=== PATIENT | male | born 1980 | race African-American/Black ===

== ENCOUNTER 2017-06-29 18:45 | Emergency (ER) | payer MEDICAID, OTHER ==
[~2017-06-29] VITALS: Ht 177.8 cm; Wt 80.9 kg
[~2017-06-29 18:45] MED LIST: DIPH25CA83 PO; SERT20OR PO
[2017-06-29] MEDS ORDERED: ATOR20TA65 MT (20:49)
[2017-06-29] MEDS ORDERED: OLAN10TA19 MT (20:49)
[2017-06-29] MEDS ORDERED: LORAZEPAM 1MG TABLET PO ONE (21:00)
[2017-06-29] MEDS ORDERED: OLANZAPINE 10MG TABLET ODT PO ONE (21:00)
[2017-06-29] MEDS ORDERED: DIPHENHYDRAMINE 50MG CAPSULE PO ONE (21:30)
[2017-06-29 21:34] LABS: BASOPHILS % 0.5 % (0.0-2.0); EOSINOPHILS % 0.5 % (0.0-5.0); HEMATOCRIT. 42.7 % (42.0-52.0); HEMOGLOBIN. 14.7 g/dL (14.0-18.0); LYMPHOCYTES % 47.8 % (20.0-50.0); MEAN CORPUSCULAR HEMOGLOBIN 30.1 pg (28.0-32.0); MEAN CORPUSCULAR VOLUME 87.6 fL (80.0-94.0); MEAN PLATELET VOLUME 7.7 fl (7.4-10.4); NEUTROPHILS % 43.2 % (40.0-76.0); PLATELET 254 x1000/uL (130-400); RED BLOOD CELL COUNT 4.88 mill/uL (4.7-6.1); RED CELL DISTRIBUTION WIDTH 13.6 % (11.6-14.6)
[2017-06-29 21:40] LABS: CHLORIDE 101 mEq/L (98-107)
[2017-06-29 21:43] LABS: ETHANOL BLOOD < 10 mg/dL
[2017-06-29 21:57] LABS: *AMPHETAMINES SCREEN URINE NEGATIVE (NEGATIVE); *BARBITURATES SCREEN URINE NEGATIVE (NEGATIVE); *BENZODIAZEPINES SCREEN URINE NEGATIVE (NEGATIVE); *COCAINE SCREEN URINE NEGATIVE (NEGATIVE); METHADONE URINE SCREEN NEGATIVE (NEGATIVE); OPIATES URINE SCREEN NEGATIVE (NEGATIVE)
[2017-06-29 21:58] LABS: CANNABINOID URINE SCREEN PRESUMTIVE POSITIVE (NEGATIVE); PHENCYCLIDINE URINE SCREEN NEGATIVE (NEGATIVE)
[2017-06-30] MEDS ORDERED: DIPHENHYDRAMINE 25MG CAPSULE PO ONE (13:30)
[2017-06-30 16:43] VITALS: BP 131/72
== END 2017-06-30 16:56 ==
LOC: ER 18:45
DX: F20.9 Schizophrenia, unspecified (principal); R45.851 Suicidal ideations; E78.00 Pure hypercholesterolemia, unspecified; F17.200 Nicotine dependence, unspecified, uncomplicated
CPT/HCPCS: 36415; 80048; 80305; 80307; 80329; 85025; 99285; G0482; Q0163

== ENCOUNTER 2017-08-16 16:36 | Emergency (ER) | payer MEDICAID ==
[~2017-08-16] VITALS: Ht 172.7 cm; Wt 80.0 kg
[~2017-08-16 16:36] MED LIST changes: +ATOR20TA65 MT; +OLAN10TA19 MT
[2017-08-16 18:39] LABS: BASOPHILS % 0.5 % (0.0-2.0); EOSINOPHILS % 1.4 % (0.0-5.0); HEMATOCRIT. 38.3 % (42.0-52.0); HEMOGLOBIN. 12.8 g/dL (14.0-18.0); LYMPHOCYTES % 43.9 % (20.0-50.0); MEAN CORPUSCULAR HEMOGLOBIN 29.5 pg (28.0-32.0); MEAN CORPUSCULAR VOLUME 88.3 fL (80.0-94.0); MEAN PLATELET VOLUME 7.7 fl (7.4-10.4); MONOCYTES % 7.8 % (2.0-8.0); NEUTROPHILS % 46.4 % (40.0-76.0); PLATELET 227 x1000/uL (130-400); RED BLOOD CELL COUNT 4.34 mill/uL (4.7-6.1); RED CELL DISTRIBUTION WIDTH 13.6 % (11.6-14.6)
[2017-08-16 18:45] LABS: CHLORIDE 103 mEq/L (98-107)
[2017-08-16 18:48] LABS: ETHANOL BLOOD < 10 mg/dL
[2017-08-16 19:05] LABS: *BARBITURATES SCREEN URINE NEGATIVE (NEGATIVE); *BENZODIAZEPINES SCREEN URINE NEGATIVE (NEGATIVE); *COCAINE SCREEN URINE NEGATIVE (NEGATIVE); CANNABINOID URINE SCREEN PRESUMTIVE POSITIVE (NEGATIVE); METHADONE URINE SCREEN NEGATIVE (NEGATIVE); OPIATES URINE SCREEN NEGATIVE (NEGATIVE)
[2017-08-16 19:06] LABS: *AMPHETAMINES SCREEN URINE NEGATIVE (NEGATIVE)
[2017-08-16 19:08] LABS: PHENCYCLIDINE URINE SCREEN NEGATIVE (NEGATIVE)
[2017-08-16] MEDS ORDERED: PETROLATUM,WHITE OPHTH OINT 3.5GM BOTHEYE STA (19:43)
[2017-08-16] MEDS ORDERED: DIPHENHYDRAMINE 50MG CAPSULE PO ONE (19:45)
[2017-08-16] MEDS ORDERED: OLANZAPINE 10MG TABLET PO SCH (21:00)
[2017-08-17] MEDS ORDERED: SERTRALINE HCL 25MG TABLET PO SCH (09:00)
[2017-08-17] MEDS ORDERED: DIPHENHYDRAMINE 50MG CAPSULE PO ONE ×2 (12:00→17:15)
[2017-08-17] MEDS ORDERED: POLYVINYL ALCOHOL OPHTH DROPS 15ML BOTHEYE STA (17:11)
[2017-08-18 10:37] VITALS: BP 114/69
== END 2017-08-18 12:15 ==
LOC: ER 16:36
DX: R45.851 Suicidal ideations (principal); F32.9 Major depressive disorder, single episode, unspecified; F17.200 Nicotine dependence, unspecified, uncomplicated
CPT/HCPCS: 36415; 80048; 80305; 80307; 80329; 85025; 99285; G0482; Q0163

== ENCOUNTER 2017-08-29 02:30 | Emergency (ER) | payer MEDICAID ==
[~2017-08-29] VITALS: Ht 175.3 cm; Wt 80.0 kg
[2017-08-29 08:07] VITALS: BP 132/78
== END 2017-08-29 08:14 | disposition home or self-care (01) ==
LOC: ER 04:29
DX: F91.8 Other conduct disorders (principal); F65.2 Exhibitionism; F23 Brief psychotic disorder; F32.9 Major depressive disorder, single episode, unspecified; F17.200 Nicotine dependence, unspecified, uncomplicated
CPT/HCPCS: 99284

== ENCOUNTER 2017-08-29 10:29 | Emergency (ER) | payer MEDICAID | END 2017-08-29 13:18 | disposition left against medical advice (07) | LOC: ER 13:16 | DX: Z53.21 Procedure and treatment not carried out due to patient leaving prior to being seen by health care provider (principal) ==

== ENCOUNTER 2017-09-08 23:00 | Emergency (ER) | payer MEDICAID ==
[~2017-09-08] VITALS: Ht 175.3 cm; Wt 86.0 kg
[2017-09-09] MEDS ORDERED: ASPIRIN 325MG TABLET PO ONE (02:45)
[2017-09-09 02:58] LABS: BASOPHILS % 0.5 % (0.0-2.0); HEMATOCRIT. 43.8 % (42.0-52.0); HEMOGLOBIN. 14.7 g/dL (14.0-18.0); MEAN CORPUSCULAR HEMOGLOBIN 29.2 pg (28.0-32.0); MEAN CORPUSCULAR VOLUME 86.8 fL (80.0-94.0); MEAN PLATELET VOLUME 7.6 fl (7.4-10.4); MONOCYTES % 9.8 % (2.0-8.0); NEUTROPHILS % 72.7 % (40.0-76.0); PLATELET 259 x1000/uL (130-400); RED BLOOD CELL COUNT 5.05 mill/uL (4.7-6.1); RED CELL DISTRIBUTION WIDTH 13.5 % (11.6-14.6)
[2017-09-09 03:04] LABS: CHLORIDE 101 mEq/L (98-107)
[2017-09-09 03:08] LABS: ETHANOL BLOOD < 10 mg/dL
[2017-09-09 10:01] VITALS: BP 149/89
== END 2017-09-09 10:06 | disposition home or self-care (01) ==
LOC: ER 23:00
DX: R45.851 Suicidal ideations (principal); F20.9 Schizophrenia, unspecified; R07.89 Other chest pain
CPT/HCPCS: 36415; 71045; 80053; 80307; 80329; 84443; 84484; 85025; 93005; 99285; G0482; Z7610

== ENCOUNTER 2017-10-29 17:26 | Emergency (ER) | payer MEDICAID ==
[~2017-10-29] VITALS: Ht 175.3 cm; Wt 75.0 kg
[2017-10-29 19:20] LABS: BASOPHILS % 0.7 % (0.0-2.0); EOSINOPHILS % 0.8 % (0.0-5.0); HEMATOCRIT. 46.2 % (42.0-52.0); HEMOGLOBIN. 15.2 g/dL (14.0-18.0); LYMPHOCYTES % 45.8 % (20.0-50.0); MEAN CORPUSCULAR VOLUME 87.9 fL (80.0-94.0); MEAN PLATELET VOLUME 7.5 fl (7.4-10.4); MONOCYTES % 10.7 % (2.0-8.0); PLATELET 275 x1000/uL (130-400); RED BLOOD CELL COUNT 5.26 mill/uL (4.7-6.1); RED CELL DISTRIBUTION WIDTH 14.1 % (11.6-14.6)
[2017-10-29 19:24] LABS: CHLORIDE 99 mEq/L (98-107)
[2017-10-29 19:29] LABS: ETHANOL BLOOD < 10 mg/dL
[2017-10-29 19:56] LABS: CLARITY URINE CLEAR (CLEAR); COLOR URINE YELLOW (YELLOW); KETONES URINE NEGATIVE (NEGATIVE); LEUKOCYTE ESTERASE URINE NEGATIVE (NEGATIVE); NITRITE URINE NEGATIVE (NEGATIVE); OCCULT BLOOD URINE NEGATIVE (NEGATIVE); PH URINE 5.5 (4.5-8.0); PROTEIN URINE NEGATIVE (NEGATIVE); SPECIFIC GRAVITY URINE 1.009 (1.005-1.030); UROBILINOGEN URINE 0.2 E.U./dL (0.2-1.0)
[2017-10-29 20:12] LABS: *AMPHETAMINES SCREEN URINE PRESUMTIVE POSITIVE (NEGATIVE); *BARBITURATES SCREEN URINE NEGATIVE (NEGATIVE); *BENZODIAZEPINES SCREEN URINE NEGATIVE (NEGATIVE)
[2017-10-29 20:13] LABS: *COCAINE SCREEN URINE NEGATIVE (NEGATIVE); CANNABINOID URINE SCREEN NEGATIVE (NEGATIVE); METHADONE URINE SCREEN NEGATIVE (NEGATIVE); OPIATES URINE SCREEN NEGATIVE (NEGATIVE); PHENCYCLIDINE URINE SCREEN NEGATIVE (NEGATIVE)
[2017-10-29] MEDS: OLANZAPINE 10MG TABLET PO STA (23:51)
[2017-10-30 18:18] VITALS: BP 129/74
== END 2017-10-30 18:20 | disposition home or self-care (01) ==
LOC: ER 17:26
DX: F15.10 Other stimulant abuse, uncomplicated (principal); R45.850 Homicidal ideations; J45.909 Unspecified asthma, uncomplicated; F17.200 Nicotine dependence, unspecified, uncomplicated; Z79.899 Other long term (current) drug therapy
CPT/HCPCS: 36415; 80053; 80305; 81003; 85025; 99284; G0482; Z7610

== ENCOUNTER 2017-11-08 23:29 | Emergency (ER) | payer MEDICAID ==
[~2017-11-08] VITALS: Ht 180.3 cm; Wt 77.0 kg
[2017-11-09] MEDS ORDERED: KETOROLAC 30MG/ML VIAL IV ONE (01:30)
[2017-11-09 02:23] LABS: BASOPHILS % 0.7 % (0.0-2.0); EOSINOPHILS % 0.5 % (0.0-5.0); HEMATOCRIT. 40.9 % (42.0-52.0); HEMOGLOBIN. 13.6 g/dL (14.0-18.0); LYMPHOCYTES % 30.8 % (20.0-50.0); MEAN CORPUSCULAR HEMOGLOBIN 29.2 pg (28.0-32.0); MEAN CORPUSCULAR VOLUME 87.8 fL (80.0-94.0); MONOCYTES % 9.6 % (2.0-8.0); NEUTROPHILS % 58.4 % (40.0-76.0); PLATELET 241 x1000/uL (130-400); RED BLOOD CELL COUNT 4.66 mill/uL (4.7-6.1); RED CELL DISTRIBUTION WIDTH 14.1 % (11.6-14.6)
[2017-11-09 02:26] LABS: CHLORIDE 101 mEq/L (98-107)
[2017-11-09 02:33] LABS: ETHANOL BLOOD < 10 mg/dL
[2017-11-09 06:16] VITALS: BP 128/68
[2017-11-09 07:34] LABS: *AMPHETAMINES SCREEN URINE NEGATIVE (NEGATIVE); *BARBITURATES SCREEN URINE NEGATIVE (NEGATIVE); *BENZODIAZEPINES SCREEN URINE NEGATIVE (NEGATIVE); *COCAINE SCREEN URINE NEGATIVE (NEGATIVE); METHADONE URINE SCREEN NEGATIVE (NEGATIVE); OPIATES URINE SCREEN NEGATIVE (NEGATIVE)
[2017-11-09 07:35] LABS: CANNABINOID URINE SCREEN NEGATIVE (NEGATIVE); PHENCYCLIDINE URINE SCREEN NEGATIVE (NEGATIVE)
== END 2017-11-09 07:53 | disposition home or self-care (01) ==
LOC: ER 23:29
DX: R07.89 Other chest pain (principal); F17.210 Nicotine dependence, cigarettes, uncomplicated
CPT/HCPCS: 36415; 71045; 80048; 80305; 84484; 85025; 93005; 96374; 99285; G0482; J1885

== ENCOUNTER 2017-11-13 19:14 | Emergency (ER) | payer MEDICAID ==
[~2017-11-13] VITALS: Ht 175.3 cm; Wt 75.9 kg
[2017-11-14] MEDS ORDERED: DIPHENHYDRAMINE 50MG CAPSULE PO STA (00:21)
[2017-11-14 01:27] LABS: CHLORIDE 103 mEq/L (98-107)
[2017-11-14 01:32] LABS: ETHANOL BLOOD < 10 mg/dL
[2017-11-14 01:36] LABS: CREATINE KINASE 293 IU/L (39-308)
[2017-11-14 01:41] LABS: BASOPHILS % 0.3 % (0.0-2.0); EOSINOPHILS % 0.1 % (0.0-5.0); HEMATOCRIT. 42.4 % (42.0-52.0); HEMOGLOBIN. 14.1 g/dL (14.0-18.0); LYMPHOCYTES % 35.7 % (20.0-50.0); MEAN CORPUSCULAR HEMOGLOBIN 29.3 pg (28.0-32.0); MEAN CORPUSCULAR VOLUME 87.9 fL (80.0-94.0); MEAN PLATELET VOLUME 7.6 fl (7.4-10.4); MONOCYTES % 8.4 % (2.0-8.0); NEUTROPHILS % 55.5 % (40.0-76.0); PLATELET 253 x1000/uL (130-400); RED BLOOD CELL COUNT 4.83 mill/uL (4.7-6.1); RED CELL DISTRIBUTION WIDTH 13.8 % (11.6-14.6)
[2017-11-14] MEDS ORDERED: LORAZEPAM 1MG TABLET PO PRN (02:30)
[2017-11-14 07:36] LABS: CLARITY URINE CLEAR (CLEAR); COLOR URINE YELLOW (YELLOW); KETONES URINE 1+ (NEGATIVE); LEUKOCYTE ESTERASE URINE NEGATIVE (NEGATIVE); NITRITE URINE NEGATIVE (NEGATIVE); OCCULT BLOOD URINE NEGATIVE (NEGATIVE); PROTEIN URINE 1+ (NEGATIVE); SPECIFIC GRAVITY URINE 1.029 (1.005-1.030)
[2017-11-14 08:24] LABS: *AMPHETAMINES SCREEN URINE PRESUMTIVE POSITIVE (NEGATIVE); *BARBITURATES SCREEN URINE NEGATIVE (NEGATIVE); *BENZODIAZEPINES SCREEN URINE NEGATIVE (NEGATIVE)
[2017-11-14 08:25] LABS: *COCAINE SCREEN URINE NEGATIVE (NEGATIVE); METHADONE URINE SCREEN NEGATIVE (NEGATIVE); OPIATES URINE SCREEN NEGATIVE (NEGATIVE); PHENCYCLIDINE URINE SCREEN NEGATIVE (NEGATIVE)
[2017-11-14 08:26] LABS: CANNABINOID URINE SCREEN PRESUMTIVE POSITIVE (NEGATIVE)
[2017-11-14 12:37] VITALS: BP 124/75
== END 2017-11-14 12:38 | disposition home or self-care (01) ==
LOC: ER 19:14
DX: R10.30 Lower abdominal pain, unspecified (principal); F29 Unspecified psychosis not due to a substance or known physiological condition; R45.850 Homicidal ideations
CPT/HCPCS: 36415; 74176; 80053; 80305; 80307; 80329; 81003; 82550; 82962; 83690; 84443; 84484; 85025; 93005; 99285; G0482; Q0163

== ENCOUNTER 2017-11-27 23:17 | Emergency (ER) | payer MEDICAID ==
[~2017-11-27] VITALS: Ht 177.8 cm; Wt 80.0 kg
[2017-11-28 03:53] LABS: EOSINOPHILS % 0.5 % (0.0-5.0); HEMATOCRIT. 42.8 % (42.0-52.0); HEMOGLOBIN. 14.6 g/dL (14.0-18.0); LYMPHOCYTES % 39.5 % (20.0-50.0); MEAN CORPUSCULAR HEMOGLOBIN 29.9 pg (28.0-32.0); MEAN CORPUSCULAR VOLUME 87.4 fL (80.0-94.0); MEAN PLATELET VOLUME 7.6 fl (7.4-10.4); MONOCYTES % 9.6 % (2.0-8.0); NEUTROPHILS % 49.4 % (40.0-76.0); PLATELET 262 x1000/uL (130-400); RED BLOOD CELL COUNT 4.89 mill/uL (4.7-6.1)
[2017-11-28 04:04] LABS: CHLORIDE 102 mEq/L (98-107); ETHANOL BLOOD < 10 mg/dL
[2017-11-28 06:50] LABS: CLARITY URINE TURBID (CLEAR); COLOR URINE YELLOW (YELLOW); KETONES URINE NEGATIVE (NEGATIVE); LEUKOCYTE ESTERASE URINE NEGATIVE (NEGATIVE); NITRITE URINE NEGATIVE (NEGATIVE); OCCULT BLOOD URINE NEGATIVE (NEGATIVE); PH URINE 6.5 (4.5-8.0); PROTEIN URINE 1+ (NEGATIVE); SPECIFIC GRAVITY URINE 1.028 (1.005-1.030)
[2017-11-28 07:09] LABS: *AMPHETAMINES SCREEN URINE PRESUMTIVE POSITIVE (NEGATIVE); *BARBITURATES SCREEN URINE NEGATIVE (NEGATIVE); *BENZODIAZEPINES SCREEN URINE NEGATIVE (NEGATIVE)
[2017-11-28 07:10] LABS: *COCAINE SCREEN URINE NEGATIVE (NEGATIVE); CANNABINOID URINE SCREEN PRESUMTIVE POSITIVE (NEGATIVE); METHADONE URINE SCREEN NEGATIVE (NEGATIVE); OPIATES URINE SCREEN NEGATIVE (NEGATIVE); PHENCYCLIDINE URINE SCREEN NEGATIVE (NEGATIVE)
[2017-11-28] MEDS ORDERED: ACETAMINOPHEN 325MG TABLET PO ONE (08:00)
[2017-11-28 20:06] VITALS: BP 114/78
== END 2017-11-28 21:30 ==
LOC: ER 23:17
DX: R25.2 Cramp and spasm (principal); R44.0 Auditory hallucinations; F31.9 Bipolar disorder, unspecified; F20.9 Schizophrenia, unspecified
CPT/HCPCS: 99284

== ENCOUNTER 2017-12-03 02:41 | Emergency (ER) | payer MEDICAID ==
[~2017-12-03] VITALS: Ht 175.3 cm; Wt 75.2 kg
[2017-12-03] MEDS ORDERED: SODIUM CHLORIDE 0.9% 1,000 ML IV ONE ×2 (06:29→08:00)
[2017-12-03] MEDS ORDERED: KETOROLAC 30MG/ML VIAL IV STA (06:29)
[2017-12-03] MEDS ORDERED: ALBUTEROL (0.083%) 2.5MG/3ML NEB HHN ONE (06:45)
[2017-12-03 07:12] LABS: BASOPHILS % 0.6 % (0.0-2.0); EOSINOPHILS % 0.9 % (0.0-5.0); HEMATOCRIT. 39.6 % (42.0-52.0); HEMOGLOBIN. 13.6 g/dL (14.0-18.0); LYMPHOCYTES % 42.4 % (20.0-50.0); MEAN CORPUSCULAR HEMOGLOBIN 29.8 pg (28.0-32.0); MEAN CORPUSCULAR VOLUME 86.7 fL (80.0-94.0); MEAN PLATELET VOLUME 7.2 fl (7.4-10.4); MONOCYTES % 12.5 % (2.0-8.0); NEUTROPHILS % 43.6 % (40.0-76.0); PLATELET 250 x1000/uL (130-400); RED BLOOD CELL COUNT 4.56 mill/uL (4.7-6.1); RED CELL DISTRIBUTION WIDTH 13.9 % (11.6-14.6)
[2017-12-03 07:18] LABS: INR 1.1; PARTIAL THROMBOPLASTIN TIME 25.8 sec (23.4-31.0); PROTHROMBIN TIME 10.6 sec (9.1-11.1)
[2017-12-03 07:20] LABS: CHLORIDE 104 mEq/L (98-107); ETHANOL BLOOD < 10 mg/dL
[2017-12-03] MEDS ORDERED: IBUPROFEN 600MG TABLET PO ONE (07:30)
[2017-12-03 07:40] LABS: CREATINE KINASE 2073 IU/L (39-308)
[2017-12-03 07:57] LABS: CREATINE KINASE MB FRACTION 3.9 ng/mL (0.5-3.6)
[2017-12-03 08:49] VITALS: BP 146/86
[2017-12-03] MEDS ORDERED: ACETAMINOPHEN 325MG TABLET PO ONE (09:45)
== END 2017-12-03 10:01 | disposition home or self-care (01) ==
LOC: ER 02:41
DX: R07.89 Other chest pain (principal); R06.02 Shortness of breath; M54.2 Cervicalgia; F31.9 Bipolar disorder, unspecified; I10 Essential (primary) hypertension; F20.9 Schizophrenia, unspecified; Z98.890 Other specified postprocedural states; Z79.899 Other long term (current) drug therapy
CPT/HCPCS: 36415; 71045; 80053; 82550; 82553; 83880; 84484; 85025; 85610; 85730; 93005; 94640; 99284; G0482; J7030; J7611; J1885

== ENCOUNTER 2017-12-10 23:23 | Emergency (ER) | payer MEDICAID ==
[~2017-12-10] VITALS: Ht 177.8 cm; Wt 79.0 kg
[2017-12-11 01:11] LABS: BASOPHILS % 0.4 % (0.0-2.0); EOSINOPHILS % 0.5 % (0.0-5.0); HEMATOCRIT. 40.8 % (42.0-52.0); HEMOGLOBIN. 13.7 g/dL (14.0-18.0); LYMPHOCYTES % 40.8 % (20.0-50.0); MEAN CORPUSCULAR HEMOGLOBIN 29.4 pg (28.0-32.0); MEAN CORPUSCULAR VOLUME 87.3 fL (80.0-94.0); MONOCYTES % 7.7 % (2.0-8.0); NEUTROPHILS % 50.6 % (40.0-76.0); PLATELET 241 x1000/uL (130-400); RED BLOOD CELL COUNT 4.68 mill/uL (4.7-6.1); RED CELL DISTRIBUTION WIDTH 14.4 % (11.6-14.6)
[2017-12-11 01:23] LABS: CHLORIDE 104 mEq/L (98-107)
[2017-12-11 02:40] VITALS: BP 119/69
== END 2017-12-11 02:45 | disposition home or self-care (01) ==
LOC: ER 23:23
DX: R06.00 Dyspnea, unspecified (principal); J45.909 Unspecified asthma, uncomplicated
CPT/HCPCS: 36415; 71045; 99285

== ENCOUNTER 2017-12-14 21:34 | Emergency (ER) | payer MEDICAID ==
[~2017-12-14] VITALS: Ht 175.3 cm; Wt 82.0 kg
[2017-12-15 05:09] VITALS: BP 123/73
[2017-12-15] MEDS ORDERED: FAMOTIDINE 20MG TABLET PO ONE (06:30)
[2017-12-15] MEDS ORDERED: IBUPROFEN 600MG TABLET PO ONE (06:30)
[2017-12-15] MEDS ORDERED: ONDANSETRON 4MG ODT PO ONE (06:30)
[2017-12-15 07:41] LABS: BASOPHILS % 0.6 % (0.0-2.0); EOSINOPHILS % 0.3 % (0.0-5.0); HEMATOCRIT. 43.2 % (42.0-52.0); HEMOGLOBIN. 14.8 g/dL (14.0-18.0); LYMPHOCYTES % 34.2 % (20.0-50.0); MEAN CORPUSCULAR VOLUME 87.2 fL (80.0-94.0); MEAN PLATELET VOLUME 7.4 fl (7.4-10.4); MONOCYTES % 8.6 % (2.0-8.0); NEUTROPHILS % 56.3 % (40.0-76.0); PLATELET 271 x1000/uL (130-400); RED BLOOD CELL COUNT 4.95 mill/uL (4.7-6.1); RED CELL DISTRIBUTION WIDTH 13.7 % (11.6-14.6)
[2017-12-15 07:46] LABS: CHLORIDE 101 mEq/L (98-107)
== END 2017-12-15 08:50 | disposition home or self-care (01) ==
LOC: ER 21:34
DX: R10.84 Generalized abdominal pain (principal); R11.0 Nausea; R74.8 Abnormal levels of other serum enzymes; I10 Essential (primary) hypertension; Z87.19 Personal history of other diseases of the digestive system
CPT/HCPCS: 36415; 80053; 83690; 85025; 99284; Q0162

== ENCOUNTER 2017-12-30 22:35 | Emergency (ER) | payer MEDICAID ==
[~2017-12-30] VITALS: Ht 175.3 cm; Wt 79.0 kg
[2017-12-31 09:54] LABS: CLARITY URINE CLEAR (CLEAR); COLOR URINE YELLOW (YELLOW); KETONES URINE NEGATIVE (NEGATIVE); LEUKOCYTE ESTERASE URINE NEGATIVE (NEGATIVE); NITRITE URINE NEGATIVE (NEGATIVE); OCCULT BLOOD URINE NEGATIVE (NEGATIVE); PROTEIN URINE NEGATIVE (NEGATIVE); SPECIFIC GRAVITY URINE 1.027 (1.005-1.030); UROBILINOGEN URINE 0.2 E.U./dL (0.2-1.0)
[2017-12-31 10:05] LABS: *AMPHETAMINES SCREEN URINE NEGATIVE (NEGATIVE); *BARBITURATES SCREEN URINE NEGATIVE (NEGATIVE); METHADONE URINE SCREEN NEGATIVE (NEGATIVE); OPIATES URINE SCREEN NEGATIVE (NEGATIVE)
[2017-12-31 10:06] LABS: CANNABINOID URINE SCREEN PRESUMTIVE POSITIVE (NEGATIVE)
[2017-12-31 11:10] LABS: *BENZODIAZEPINES SCREEN URINE PRESUMTIVE POSITIVE (NEGATIVE); *COCAINE SCREEN URINE NEGATIVE (NEGATIVE)
[2017-12-31 11:11] LABS: PHENCYCLIDINE URINE SCREEN PRESUMTIVE POSITIVE (NEGATIVE)
[2017-12-31 11:34] LABS: BASOPHILS % 0.7 % (0.0-2.0); EOSINOPHILS % 2.2 % (0.0-5.0); HEMATOCRIT. 41.3 % (42.0-52.0); HEMOGLOBIN. 13.6 g/dL (14.0-18.0); LYMPHOCYTES % 50.5 % (20.0-50.0); MEAN CORPUSCULAR HEMOGLOBIN 28.9 pg (28.0-32.0); MEAN CORPUSCULAR VOLUME 88.1 fL (80.0-94.0); MEAN PLATELET VOLUME 7.6 fl (7.4-10.4); MONOCYTES % 12.6 % (2.0-8.0); PLATELET 223 x1000/uL (130-400); RED BLOOD CELL COUNT 4.69 mill/uL (4.7-6.1)
[2017-12-31 11:39] LABS: CHLORIDE 103 mEq/L (98-107)
[2017-12-31 11:45] LABS: ETHANOL BLOOD < 10 mg/dL
[2017-12-31 13:42] VITALS: BP 118/74
== END 2017-12-31 13:28 | disposition home or self-care (01) ==
LOC: ER 22:35
DX: R44.0 Auditory hallucinations (principal); R45.850 Homicidal ideations; F19.10 Other psychoactive substance abuse, uncomplicated; F16.10 Hallucinogen abuse, uncomplicated; F15.10 Other stimulant abuse, uncomplicated; F12.10 Cannabis abuse, uncomplicated; R03.0 Elevated blood-pressure reading, without diagnosis of hypertension; F20.9 Schizophrenia, unspecified
CPT/HCPCS: 36415; 80053; 80305; 80307; 80329; 81003; 82962; 85025; 99283; G0482

== ENCOUNTER 2018-01-09 02:24 | Emergency (ER) | payer MEDICAID ==
[~2018-01-09] VITALS: Ht 175.3 cm; Wt 80.0 kg
[2018-01-09] MEDS ORDERED: SODIUM CHLORIDE 0.9% 1,000 ML IV ONE (05:19)
[2018-01-09] MEDS ORDERED: MORPHINE SULFATE 4 MG/ML CPJ (NOT FOR IM USE) IV STA (05:19)
[2018-01-09] MEDS ORDERED: ONDANSETRON HCL 4MG/2ML INJ IV STA (05:19)
[2018-01-09] MEDS ORDERED: FAMOTIDINE 20MG/2ML VIAL IV STA (05:19)
[2018-01-09] MEDS ORDERED: LORAZEPAM 2MG/ML CPJ IV ONE (06:00)
[2018-01-09 06:15] LABS: BASOPHILS % 0.5 % (0.0-2.0); EOSINOPHILS % 0.2 % (0.0-5.0); HEMATOCRIT. 43.7 % (42.0-52.0); HEMOGLOBIN. 14.7 g/dL (14.0-18.0); LYMPHOCYTES % 22.4 % (20.0-50.0); MEAN CORPUSCULAR HEMOGLOBIN 29.2 pg (28.0-32.0); MEAN CORPUSCULAR VOLUME 86.7 fL (80.0-94.0); MEAN PLATELET VOLUME 7.8 fl (7.4-10.4); MONOCYTES % 9.1 % (2.0-8.0); NEUTROPHILS % 67.8 % (40.0-76.0); PLATELET 250 x1000/uL (130-400); RED BLOOD CELL COUNT 5.04 mill/uL (4.7-6.1); RED CELL DISTRIBUTION WIDTH 14.5 % (11.6-14.6)
[2018-01-09 06:20] LABS: CHLORIDE 99 mEq/L (98-107)
[2018-01-09 06:27] LABS: ETHANOL BLOOD < 10 mg/dL
[2018-01-09 07:30] LABS: PROTHROMBIN TIME 10.3 sec (9.1-11.1)
[2018-01-09 08:19] VITALS: BP 149/77
== END 2018-01-09 08:24 | disposition home or self-care (01) ==
LOC: ER 02:24
DX: R10.30 Lower abdominal pain, unspecified (principal); M79.605 Pain in left leg; M79.604 Pain in right leg; F17.200 Nicotine dependence, unspecified, uncomplicated; F20.9 Schizophrenia, unspecified
CPT/HCPCS: 36415; 80053; 80307; 80329; 83690; 84443; 84484; 85025; 85610; 96374; 96375; 99283; G0482; J2060; J2270; J2405; J3490; J7030

== ENCOUNTER 2018-02-09 02:30 | Emergency (ER) | payer MEDICAID ==
[~2018-02-09] VITALS: Ht 175.3 cm; Wt 80.0 kg
[2018-02-09] MEDS ORDERED: MORPHINE SULFATE 4 MG/ML CPJ (NOT FOR IM USE) IV STA (04:27)
[2018-02-09] MEDS ORDERED: ONDANSETRON HCL 4MG/2ML INJ IV STA (04:27)
[2018-02-09] MEDS ORDERED: SODIUM CHLORIDE 0.9% 1,000 ML IV ONE (04:27)
[2018-02-09] MEDS ORDERED: FAMOTIDINE 20MG/2ML VIAL IV ONE (04:30)
[2018-02-09] MEDS ORDERED: MORPHINE SULFATE 10 MG/ML CPJ IV NR (04:45)
[2018-02-09 05:11] LABS: BASOPHILS % 0.8 % (0.0-2.0); HEMATOCRIT. 46.7 % (42.0-52.0); HEMOGLOBIN. 15.5 g/dL (14.0-18.0); LYMPHOCYTES % 28.9 % (20.0-50.0); MEAN CORPUSCULAR VOLUME 87.1 fL (80.0-94.0); MEAN PLATELET VOLUME 7.7 fl (7.4-10.4); MONOCYTES % 5.2 % (2.0-8.0); NEUTROPHILS % 65.1 % (40.0-76.0); PLATELET 248 x1000/uL (130-400); RED BLOOD CELL COUNT 5.35 mill/uL (4.7-6.1); RED CELL DISTRIBUTION WIDTH 14.2 % (11.6-14.6)
[2018-02-09 05:20] LABS: CHLORIDE 103 mEq/L (98-107)
[2018-02-09 05:24] LABS: ETHANOL BLOOD 128 mg/dL
[2018-02-09] MEDS ORDERED: VISCOUS LIDOCAINE 2% 15 ML UDC PO STA (05:51)
[2018-02-09] MEDS ORDERED: MAGNESIUM/ALUMINUM HYDROXIDE/SIMETHICONE 30ML UDC PO STA (05:51)
[2018-02-09] MEDS ORDERED: DIPHENHYDRAMINE 25MG CAPSULE PO ONE (06:00)
[2018-02-09 06:04] VITALS: BP 132/82
== END 2018-02-09 06:05 | disposition home or self-care (01) ==
LOC: ER 02:30
DX: K29.00 Acute gastritis without bleeding (principal); F10.129 Alcohol abuse with intoxication, unspecified; Y90.6 Blood alcohol level of 120-199 mg/100 ml; J45.909 Unspecified asthma, uncomplicated; F32.9 Major depressive disorder, single episode, unspecified
CPT/HCPCS: 36415; 80053; 83690; 85025; 96374; 96375; 99284; G0482; J2270; J2405; J3490; J7030; Q0163

== ENCOUNTER 2018-02-17 21:52 | Emergency (ER) | payer MEDICAID ==
[~2018-02-17] VITALS: Ht 175.3 cm; Wt 79.0 kg
[2018-02-18] MEDS ORDERED: SODIUM CHLORIDE 0.9% 1,000 ML IV ONE
[2018-02-18] MEDS ORDERED: ONDANSETRON HCL 4MG/2ML INJ IV STA
[2018-02-18 00:46] LABS: BASOPHILS % 0.4 % (0.0-2.0); EOSINOPHILS % 0.1 % (0.0-5.0); HEMATOCRIT. 44.2 % (42.0-52.0); HEMOGLOBIN. 14.9 g/dL (14.0-18.0); LYMPHOCYTES % 24.3 % (20.0-50.0); MEAN CORPUSCULAR VOLUME 86.1 fL (80.0-94.0); MONOCYTES % 7.5 % (2.0-8.0); NEUTROPHILS % 67.7 % (40.0-76.0); PLATELET 286 x1000/uL (130-400); RED BLOOD CELL COUNT 5.14 mill/uL (4.7-6.1); RED CELL DISTRIBUTION WIDTH 14.4 % (11.6-14.6)
[2018-02-18 00:51] LABS: CHLORIDE 99 mEq/L (98-107)
[2018-02-18] MEDS ORDERED: ASPIRIN 325MG TABLET PO ONE (02:00)
[2018-02-18] MEDS ORDERED: ASPIRIN 325MG TABLET PO SCH (03:06)
[2018-02-18 03:23] VITALS: BP 123/71
== END 2018-02-18 03:27 | disposition home or self-care (01) ==
LOC: ER 21:52
DX: R10.13 Epigastric pain (principal); R07.89 Other chest pain; R42 Dizziness and giddiness; R00.0 Tachycardia, unspecified; F32.9 Major depressive disorder, single episode, unspecified; J45.909 Unspecified asthma, uncomplicated; F17.200 Nicotine dependence, unspecified, uncomplicated; Z79.899 Other long term (current) drug therapy
CPT/HCPCS: 36415; 71045; 80053; 83690; 85025; 93005; 96361; 96374; 99284; J2405; J7030

== ENCOUNTER 2018-03-09 05:18 | Emergency (ER) | payer MEDICAID ==
[~2018-03-09] VITALS: Ht 172.7 cm; Wt 85.0 kg
[2018-03-09] MEDS ORDERED: LORAZEPAM 1MG TABLET PO ONE (07:15)
[2018-03-09 08:25] LABS: BASOPHILS % 0.5 % (0.0-2.0); EOSINOPHILS % 0.1 % (0.0-5.0); HEMOGLOBIN. 14.7 g/dL (14.0-18.0); LYMPHOCYTES % 14.1 % (20.0-50.0); MEAN CORPUSCULAR HEMOGLOBIN 28.9 pg (28.0-32.0); MEAN CORPUSCULAR VOLUME 86.5 fL (80.0-94.0); MEAN PLATELET VOLUME 7.4 fl (7.4-10.4); MONOCYTES % 8.1 % (2.0-8.0); NEUTROPHILS % 77.2 % (40.0-76.0); PLATELET 268 x1000/uL (130-400); RED BLOOD CELL COUNT 5.09 mill/uL (4.7-6.1); RED CELL DISTRIBUTION WIDTH 13.6 % (11.6-14.6)
[2018-03-09 09:16] LABS: CLARITY URINE CLEAR (CLEAR); COLOR URINE YELLOW (YELLOW); KETONES URINE NEGATIVE (NEGATIVE); LEUKOCYTE ESTERASE URINE NEGATIVE (NEGATIVE); NITRITE URINE NEGATIVE (NEGATIVE); OCCULT BLOOD URINE NEGATIVE (NEGATIVE); PH URINE 6.5 (4.5-8.0); PROTEIN URINE 1+ (NEGATIVE); SPECIFIC GRAVITY URINE 1.011 (1.005-1.030); UROBILINOGEN URINE 0.2 E.U./dL (0.2-1.0)
[2018-03-09 09:24] LABS: ETHANOL BLOOD < 10 mg/dL
[2018-03-09 09:29] LABS: CHLORIDE 101 mEq/L (98-107)
[2018-03-09 09:38] LABS: *BENZODIAZEPINES SCREEN URINE NEGATIVE (NEGATIVE); *COCAINE SCREEN URINE NEGATIVE (NEGATIVE); METHADONE URINE SCREEN NEGATIVE (NEGATIVE); OPIATES URINE SCREEN NEGATIVE (NEGATIVE)
[2018-03-09 09:39] LABS: *AMPHETAMINES SCREEN URINE NEGATIVE (NEGATIVE); CANNABINOID URINE SCREEN PRESUMTIVE POSITIVE (NEGATIVE); PHENCYCLIDINE URINE SCREEN NEGATIVE (NEGATIVE)
[2018-03-09 09:43] LABS: *BARBITURATES SCREEN URINE NEGATIVE (NEGATIVE)
[2018-03-10 05:32] VITALS: BP 120/82
== END 2018-03-10 10:04 | disposition home or self-care (01) ==
LOC: ER 05:18
DX: R45.850 Homicidal ideations (principal); R00.0 Tachycardia, unspecified
CPT/HCPCS: 36415; 71045; 80053; 80305; 80307; 80329; 81003; 83690; 85025; 93005; 99284; G0482

== ENCOUNTER 2018-03-11 17:53 | Emergency (ER) | payer MEDICAID ==
[~2018-03-11] VITALS: Ht 175.3 cm; Wt 81.0 kg
[2018-03-12 00:45] VITALS: BP 152/92
[2018-03-12] MEDS ORDERED: IBUPROFEN 600MG TABLET PO ONE (00:45)
== END 2018-03-12 01:05 | disposition home or self-care (01) ==
LOC: ER 17:53
DX: F15.10 Other stimulant abuse, uncomplicated (principal); R51 Headache; J45.909 Unspecified asthma, uncomplicated; R07.89 Other chest pain; M79.18 Myalgia, other site
CPT/HCPCS: 93005; 99283

== ENCOUNTER 2018-03-13 21:34 | Emergency (ER) | payer MEDICAID ==
[~2018-03-13] VITALS: Ht 177.8 cm; Wt 82.0 kg
[2018-03-13] MEDS ORDERED: ACETAMINOPHEN 325MG TABLET PO ONE (22:15)
[2018-03-13 23:42] LABS: BASOPHILS % 0.4 % (0.0-2.0); EOSINOPHILS % 0.2 % (0.0-5.0); HEMATOCRIT. 42.8 % (42.0-52.0); HEMOGLOBIN. 14.1 g/dL (14.0-18.0); LYMPHOCYTES % 19.7 % (20.0-50.0); MEAN CORPUSCULAR HEMOGLOBIN 28.8 pg (28.0-32.0); MEAN CORPUSCULAR VOLUME 87.3 fL (80.0-94.0); MEAN PLATELET VOLUME 7.4 fl (7.4-10.4); MONOCYTES % 8.9 % (2.0-8.0); NEUTROPHILS % 70.8 % (40.0-76.0); PLATELET 256 x1000/uL (130-400); RED CELL DISTRIBUTION WIDTH 13.7 % (11.6-14.6)
[2018-03-13 23:48] LABS: CHLORIDE 105 mEq/L (98-107)
[2018-03-13 23:57] LABS: ETHANOL BLOOD < 10 mg/dL
[2018-03-14 00:10] VITALS: BP 133/77
== END 2018-03-14 00:42 | disposition home or self-care (01) ==
LOC: ER 21:34
DX: R53.1 Weakness (principal); R05 Cough; R42 Dizziness and giddiness; J45.909 Unspecified asthma, uncomplicated; F15.10 Other stimulant abuse, uncomplicated; Z79.899 Other long term (current) drug therapy
CPT/HCPCS: 36415; 71045; 80307; 80329; 99284

== ENCOUNTER 2018-03-14 11:17 | Emergency (ER) | payer MEDICAID ==
[~2018-03-14] VITALS: Ht 185.4 cm; Wt 91.0 kg
[2018-03-14 11:20] VITALS: BP 131/95
== END 2018-03-14 15:15 | disposition left against medical advice (07) ==
LOC: ER 11:22
DX: F41.9 Anxiety disorder, unspecified (principal); Z53.21 Procedure and treatment not carried out due to patient leaving prior to being seen by health care provider
CPT/HCPCS: 93005

== ENCOUNTER 2018-03-22 23:22 | Emergency (ER) | payer MEDICAID ==
[~2018-03-22] VITALS: Ht 172.7 cm; Wt 91.0 kg
[2018-03-23 02:56] LABS: BASOPHILS % 0.4 % (0.0-2.0); HEMATOCRIT. 43.5 % (42.0-52.0); HEMOGLOBIN. 14.6 g/dL (14.0-18.0); LYMPHOCYTES % 22.3 % (20.0-50.0); MEAN CORPUSCULAR HEMOGLOBIN 29.1 pg (28.0-32.0); MEAN CORPUSCULAR VOLUME 86.6 fL (80.0-94.0); MEAN PLATELET VOLUME 7.4 fl (7.4-10.4); MONOCYTES % 9.4 % (2.0-8.0); NEUTROPHILS % 67.9 % (40.0-76.0); PLATELET 294 x1000/uL (130-400); RED BLOOD CELL COUNT 5.02 mill/uL (4.7-6.1); RED CELL DISTRIBUTION WIDTH 13.9 % (11.6-14.6)
[2018-03-23 03:02] LABS: CHLORIDE 103 mEq/L (98-107)
[2018-03-23 03:06] LABS: ETHANOL BLOOD < 10 mg/dL
[2018-03-23 03:12] LABS: CREATINE KINASE 300 IU/L (39-308)
[2018-03-23] MEDS: SODIUM CHLORIDE 0.9% 1,000 ML IV ONE (03:23)
[2018-03-23 06:19] VITALS: BP 118/62
[2018-03-23 12:16] LABS: *AMPHETAMINES SCREEN URINE PRESUMTIVE POSITIVE (NEGATIVE); *BARBITURATES SCREEN URINE NEGATIVE (NEGATIVE); *BENZODIAZEPINES SCREEN URINE NEGATIVE (NEGATIVE); *COCAINE SCREEN URINE NEGATIVE (NEGATIVE)
[2018-03-23 12:17] LABS: CANNABINOID URINE SCREEN NEGATIVE (NEGATIVE); METHADONE URINE SCREEN NEGATIVE (NEGATIVE); OPIATES URINE SCREEN NEGATIVE (NEGATIVE); PHENCYCLIDINE URINE SCREEN NEGATIVE (NEGATIVE)
== END 2018-03-23 06:56 | disposition home or self-care (01) ==
LOC: ER 23:22
DX: F91.8 Other conduct disorders (principal); R00.0 Tachycardia, unspecified; J45.909 Unspecified asthma, uncomplicated; F15.10 Other stimulant abuse, uncomplicated; Z79.899 Other long term (current) drug therapy
CPT/HCPCS: 36415; 71045; 80053; 80305; 80307; 80329; 82550; 83690; 85025; 87186; 93005; 99284; J7030; Z7610

== ENCOUNTER 2018-03-23 07:13 | Emergency (ER) | payer MEDICAID ==
[~2018-03-23] VITALS: Ht 177.8 cm; Wt 81.0 kg
[2018-03-23 10:57] LABS: BASOPHILS % 0.4 % (0.0-2.0); EOSINOPHILS % 0.1 % (0.0-5.0); HEMATOCRIT. 40.8 % (42.0-52.0); HEMOGLOBIN. 13.7 g/dL (14.0-18.0); MEAN CORPUSCULAR VOLUME 86.6 fL (80.0-94.0); MEAN PLATELET VOLUME 7.4 fl (7.4-10.4); MONOCYTES % 12.3 % (2.0-8.0); NEUTROPHILS % 64.2 % (40.0-76.0); PLATELET 272 x1000/uL (130-400); RED BLOOD CELL COUNT 4.71 mill/uL (4.7-6.1); RED CELL DISTRIBUTION WIDTH 13.7 % (11.6-14.6)
[2018-03-23 11:02] LABS: CHLORIDE 104 mEq/L (98-107)
[2018-03-23 11:07] LABS: ETHANOL BLOOD < 10 mg/dL
[2018-03-23 13:30] VITALS: BP 124/77
== END 2018-03-23 14:32 | disposition left against medical advice (07) ==
LOC: ER 07:36
DX: F32.9 Major depressive disorder, single episode, unspecified (principal); F20.9 Schizophrenia, unspecified; Z79.899 Other long term (current) drug therapy
CPT/HCPCS: 36415; 93005; 99284

== ENCOUNTER 2018-04-04 21:18 | Emergency (ER) | payer MEDICAID ==
[~2018-04-04] VITALS: Ht 172.7 cm; Wt 82.0 kg
[2018-04-05 01:26] LABS: BASOPHILS % 0.3 % (0.0-2.0); CHLORIDE 104 mEq/L (98-107); EOSINOPHILS % 0.2 % (0.0-5.0); HEMATOCRIT. 42.5 % (42.0-52.0); HEMOGLOBIN. 14.2 g/dL (14.0-18.0); LYMPHOCYTES % 22.1 % (20.0-50.0); MEAN CORPUSCULAR HEMOGLOBIN 29.3 pg (28.0-32.0); MEAN CORPUSCULAR VOLUME 87.7 fL (80.0-94.0); MEAN PLATELET VOLUME 7.5 fl (7.4-10.4); MONOCYTES % 7.9 % (2.0-8.0); NEUTROPHILS % 69.5 % (40.0-76.0); PLATELET 266 x1000/uL (130-400); RED BLOOD CELL COUNT 4.85 mill/uL (4.7-6.1); RED CELL DISTRIBUTION WIDTH 13.9 % (11.6-14.6)
[2018-04-05 04:59] VITALS: BP 139/83
== END 2018-04-05 05:22 | disposition home or self-care (01) ==
LOC: ER 21:18
DX: F41.8 Other specified anxiety disorders (principal); R03.0 Elevated blood-pressure reading, without diagnosis of hypertension; R10.9 Unspecified abdominal pain
CPT/HCPCS: 36415; 93005; 99284

== ENCOUNTER → 2018-04-04 | Emergency (ER) | payer MEDICAID | END | disposition home or self-care (01) | LOC: ER 21:54 | DX: R68.89 Other general symptoms and signs (principal) | CPT/HCPCS: 93005; 99283 ==

== ENCOUNTER 2018-04-05 05:18 | Emergency (ER) | payer MEDICAID ==
[~2018-04-05] VITALS: Ht 177.8 cm; Wt 82.0 kg
[2018-04-05 05:40] VITALS: BP 128/73
[2018-04-05] MEDS ORDERED: IPRATROPIUM/ALBUTEROL 0.5-3(2.5)MG/3ML NEB ONE (07:52)
== END 2018-04-05 07:19 | disposition left against medical advice (07) ==
LOC: ER 05:18
DX: Z53.21 Procedure and treatment not carried out due to patient leaving prior to being seen by health care provider (principal)
CPT/HCPCS: J7620

== ENCOUNTER 2018-04-11 01:53 | Emergency (ER) | payer MEDICAID ==
[~2018-04-11] VITALS: Ht 177.8 cm; Wt 81.0 kg
[2018-04-11 02:45] VITALS: BP 131/73
== END 2018-04-11 04:50 | disposition left against medical advice (07) ==
LOC: ER 01:53
DX: Z53.21 Procedure and treatment not carried out due to patient leaving prior to being seen by health care provider (principal)

== ENCOUNTER 2018-08-26 01:13 | Emergency (ER) | payer MEDICAID ==
[~2018-08-26] VITALS: Ht 177.8 cm; Wt 72.4 kg
[2018-08-26] MEDS ORDERED: SODIUM CHLORIDE 0.9% 1,000 ML IV ONE (06:39)
[2018-08-26] MEDS ORDERED: ONDANSETRON HCL 4MG/2ML INJ IV STA (06:39)
[2018-08-26] MEDS ORDERED: FAMOTIDINE 20MG/2ML VIAL IV STA (06:39)
[2018-08-26] MEDS ORDERED: MORPHINE SULFATE 4 MG/ML CPJ (NOT FOR IM USE) IV STA (07:02)
[2018-08-26 07:10] LABS: BASOPHILS % 0.6 % (0.0-2.0); EOSINOPHILS % 0.6 % (0.0-5.0); HEMATOCRIT. 41.3 % (42.0-52.0); LYMPHOCYTES % 44.7 % (20.0-50.0); MEAN CORPUSCULAR HEMOGLOBIN 29.4 pg (28.0-32.0); MEAN CORPUSCULAR VOLUME 86.7 fL (80.0-94.0); MEAN PLATELET VOLUME 7.3 fl (7.4-10.4); MONOCYTES % 12.6 % (2.0-8.0); NEUTROPHILS % 41.5 % (40.0-76.0); PLATELET 193 x1000/uL (130-400); RED BLOOD CELL COUNT 4.76 mill/uL (4.7-6.1)
[2018-08-26 07:20] LABS: CHLORIDE 105 mEq/L (98-107)
[2018-08-26 07:24] LABS: ETHANOL BLOOD < 10 mg/dL; PROTHROMBIN TIME 10.8 sec (9.6-11.0)
[2018-08-26 07:39] LABS: CLARITY URINE CLEAR (CLEAR); COLOR URINE YELLOW (YELLOW); KETONES URINE TRACE (NEGATIVE); LEUKOCYTE ESTERASE URINE NEGATIVE (NEGATIVE); NITRITE URINE NEGATIVE (NEGATIVE); OCCULT BLOOD URINE NEGATIVE (NEGATIVE); PROTEIN URINE NEGATIVE (NEGATIVE)
[2018-08-26 07:50] LABS: *AMPHETAMINES SCREEN URINE NEGATIVE (NEGATIVE); *COCAINE SCREEN URINE NEGATIVE (NEGATIVE); CANNABINOID URINE SCREEN NEGATIVE (NEGATIVE); METHADONE URINE SCREEN NEGATIVE (NEGATIVE); OPIATES URINE SCREEN NEGATIVE (NEGATIVE); PHENCYCLIDINE URINE SCREEN NEGATIVE (NEGATIVE)
[2018-08-26 07:51] LABS: *BARBITURATES SCREEN URINE NEGATIVE (NEGATIVE); *BENZODIAZEPINES SCREEN URINE NEGATIVE (NEGATIVE)
[2018-08-26] MEDS ORDERED: DIPHENHYDRAMINE 50MG/ML VIAL IV ONE (08:15)
[2018-08-26] MEDS ORDERED: DICYCLOMINE HCL 10MG/ML 2ML AMP IM ONE (08:45)
[2018-08-26 10:08] VITALS: BP 116/71
== END 2018-08-26 10:15 | disposition home or self-care (01) ==
LOC: ER 01:13
DX: R10.0 Acute abdomen (principal); R11.10 Vomiting, unspecified; R03.0 Elevated blood-pressure reading, without diagnosis of hypertension
CPT/HCPCS: 36415; 74176; 80053; 80305; 80320; 81003; 83690; 85025; 85610; 96361; 96372; 96374; 96375; 99284; J0500; J1200; J2270; J2405; J3490; J7030; Z7610; G0480

== ENCOUNTER 2018-09-03 21:11 | Emergency (ER) | payer MEDICAID ==
[~2018-09-03] VITALS: Ht 175.3 cm; Wt 82.0 kg
[2018-09-04] MEDS ORDERED: SODIUM CHLORIDE 0.9% 1,000 ML IV ONE (02:30)
[2018-09-04 03:13] LABS: BASOPHILS % 0.5 % (0.0-2.0); EOSINOPHILS % 0.8 % (0.0-5.0); HEMATOCRIT. 35.9 % (42.0-52.0); HEMOGLOBIN. 12.1 g/dL (14.0-18.0); LYMPHOCYTES % 30.3 % (20.0-50.0); MEAN CORPUSCULAR HEMOGLOBIN 29.7 pg (28.0-32.0); MEAN PLATELET VOLUME 7.5 fl (7.4-10.4); MONOCYTES % 12.7 % (2.0-8.0); NEUTROPHILS % 55.7 % (40.0-76.0); PLATELET 198 x1000/uL (130-400); RED BLOOD CELL COUNT 4.08 mill/uL (4.7-6.1)
[2018-09-04 03:16] LABS: PROTHROMBIN TIME 10.2 sec (9.6-11.0)
[2018-09-04 03:21] LABS: CHLORIDE 107 mEq/L (98-107)
[2018-09-04] MEDS ORDERED: KETOROLAC 30MG/ML VIAL IV ONE (03:45)
[2018-09-04] MEDS ORDERED: ONDANSETRON HCL 4MG/2ML INJ IV ONE (03:45)
[2018-09-04 06:24] VITALS: BP 106/49
[2018-09-04 06:30] LABS: CLARITY URINE CLEAR (CLEAR); COLOR URINE DARK YELLOW (YELLOW); KETONES URINE TRACE (NEGATIVE); LEUKOCYTE ESTERASE URINE NEGATIVE (NEGATIVE); NITRITE URINE NEGATIVE (NEGATIVE); OCCULT BLOOD URINE NEGATIVE (NEGATIVE); PH URINE 5.5 (4.5-8.0); PROTEIN URINE NEGATIVE (NEGATIVE); SPECIFIC GRAVITY URINE 1.042 (1.005-1.030)
[2018-09-04 07:02] LABS: *AMPHETAMINES SCREEN URINE PRESUMTIVE POSITIVE (NEGATIVE); *BARBITURATES SCREEN URINE NEGATIVE (NEGATIVE); *BENZODIAZEPINES SCREEN URINE NEGATIVE (NEGATIVE); CANNABINOID URINE SCREEN PRESUMTIVE POSITIVE (NEGATIVE); METHADONE URINE SCREEN NEGATIVE (NEGATIVE); OPIATES URINE SCREEN NEGATIVE (NEGATIVE); PHENCYCLIDINE URINE SCREEN NEGATIVE (NEGATIVE)
[2018-09-04 07:03] LABS: *COCAINE SCREEN URINE NEGATIVE (NEGATIVE)
== END 2018-09-04 07:20 | disposition home or self-care (01) ==
LOC: ER 21:11
DX: R10.30 Lower abdominal pain, unspecified (principal); R11.2 Nausea with vomiting, unspecified
CPT/HCPCS: 36415; 80053; 80305; 81003; 83605; 83690; 85025; 85610; 87040; 96361; 96374; 96375; 99283; J1885; J2405; J7030

== ENCOUNTER 2018-09-24 17:41 | Inpatient (IN) | payer MEDICAID ==
[~2018-09-24] VITALS: Ht 172.7 cm; Wt 79.8 kg
[2018-09-24 23:31] LABS: CHLORIDE 102 mEq/L (98-107)
[2018-09-24 23:35] LABS: BASOPHILS % 0.7 % (0.0-2.0); EOSINOPHILS % 0.9 % (0.0-5.0); HEMATOCRIT. 39.9 % (42.0-52.0); HEMOGLOBIN. 13.2 g/dL (14.0-18.0); LYMPHOCYTES % 16.8 % (20.0-50.0); MEAN CORPUSCULAR HEMOGLOBIN 29.3 pg (28.0-32.0); MEAN CORPUSCULAR VOLUME 88.4 fL (80.0-94.0); MEAN PLATELET VOLUME 7.2 fl (7.4-10.4); MONOCYTES % 5.2 % (2.0-8.0); NEUTROPHILS % 76.4 % (40.0-76.0); PLATELET 391 x1000/uL (130-400); RED BLOOD CELL COUNT 4.51 mill/uL (4.7-6.1)
[2018-09-25] MEDS ORDERED: ASPIRIN 325MG EC TABLET PO ONE (00:45)
[2018-09-25 04:00] VITALS: BP 159/71
[2018-09-25] MEDS ORDERED: NITROGLYCERIN 0.4MG TABLET SL SL ONE (05:00)
[2018-09-25] MEDS ORDERED: AMLODIPINE 5MG TABLET PO SCH ×2 (05:03→21:00)
[2018-09-25] MEDS: OMEPRAZOLE 20MG CAPSULE EXTENDED RELEASE PO SCH (06:08)
[2018-09-25 08:00] VITALS: BP 126/87
[2018-09-25] MEDS ORDERED: ASPIRIN 81MG TABLET PO SCH (09:00)
[2018-09-25] MEDS ORDERED: ENOXAPARIN 40MG/0.4ML SYR SUBCUT SCH (09:00)
[2018-09-25 10:21] LABS: BASOPHILS % 0.7 % (0.0-2.0); EOSINOPHILS % 0.2 % (0.0-5.0); HEMATOCRIT. 37.5 % (42.0-52.0); HEMOGLOBIN. 12.7 g/dL (14.0-18.0); LYMPHOCYTES % 17.3 % (20.0-50.0); MEAN CORPUSCULAR HEMOGLOBIN 29.6 pg (28.0-32.0); MEAN CORPUSCULAR VOLUME 87.1 fL (80.0-94.0); MEAN PLATELET VOLUME 7.2 fl (7.4-10.4); MONOCYTES % 7.4 % (2.0-8.0); NEUTROPHILS % 74.4 % (40.0-76.0); PLATELET 370 x1000/uL (130-400); RED BLOOD CELL COUNT 4.31 mill/uL (4.7-6.1); RED CELL DISTRIBUTION WIDTH 14.7 % (11.6-14.6)
[2018-09-25 10:31] LABS: CHLORIDE 100 mEq/L (98-107)
[2018-09-25 10:38] LABS: LDL CHOLESTEROL 122 mg/dL (5-100)
[2018-09-25 10:39] LABS: HDL CHOLESTEROL 45 mg/dL (40-59)
[2018-09-25] MEDS ORDERED: REGADENOSON 0.4 MG/5 ML IV ONE (11:15)
[2018-09-25 12:00] VITALS: BP 131/88
[2018-09-25 12:08] LABS: HEPATITIS B SURFACE ANTIGEN NEGATIVE
[2018-09-25 12:38] LABS: HEPATITIS A AB IGM NEGATIVE (NEGATIVE)
[2018-09-25] MEDS ORDERED: NITROGLYCERIN 0.4MG TABLET SL SL PRN (13:15)
[2018-09-25 16:00] VITALS: BP 131/82
[2018-09-25 20:00] VITALS: BP 136/81
[2018-09-25] MEDS ORDERED: ATORVASTATIN CALCIUM 10MG TABLET PO SCH (21:00)
[2018-09-25] MEDS ORDERED: ACETAMINOPHEN 325MG TABLET PO PRN (22:30)
[2018-09-25] MEDS ORDERED: LORAZEPAM 2MG/ML CPJ IV NR (22:30)
[2018-09-25] MEDS ORDERED: CLONIDINE 0.1MG TABLET PO PRN (22:30)
[2018-09-25] MEDS ORDERED: LORAZEPAM 2MG/ML CPJ IV PRN (22:30)
[2018-09-25 23:44] LABS: BG BASE EXCESS 1.4 mmol/L (-2.0-2.0); BG CARBOXYHEMOGLOBIN 0.3 % (0.5-1.5); BG FRACTION INSPIRED OXYGEN 21; BG HCO3 ACT 25.2 mmol/L (22.0-26.0); BG METHEMOGLOBIN 0.3 % (0.0-1.5); BG OXYHEMOGLOBIN 96.4 % (94.0-97.0); BG PCO2 37.3 mmHg (35.0-45.0); BG PH 7.447 (7.350-7.450); BG PO2 90.4 mmHg (75.0-100.0); BG SAMPLE SITE RIGHT BRACHIAL; BG TOTAL HEMOGLOBIN 14.4 g/dL (12.0-18.0); BG VENT MODE ROOM AIR
[2018-09-25 23:48] LABS: *BARBITURATES SCREEN URINE NEGATIVE (NEGATIVE); *BENZODIAZEPINES SCREEN URINE NEGATIVE (NEGATIVE)
[2018-09-25 23:49] LABS: *AMPHETAMINES SCREEN URINE PRESUMTIVE POSITIVE (NEGATIVE); *COCAINE SCREEN URINE NEGATIVE (NEGATIVE); CANNABINOID URINE SCREEN PRESUMTIVE POSITIVE (NEGATIVE); OPIATES URINE SCREEN NEGATIVE (NEGATIVE); PHENCYCLIDINE URINE SCREEN NEGATIVE (NEGATIVE)
[2018-09-25 23:53] LABS: METHADONE URINE SCREEN NEGATIVE (NEGATIVE)
[2018-09-26] VITALS: BP 128/78
[2018-09-26 04:00] VITALS: BP 132/76
[2018-09-26] MEDS: OMEPRAZOLE 20MG CAPSULE EXTENDED RELEASE PO SCH (06:33)
[2018-09-26 07:06] LABS: BASOPHILS % 0.3 % (0.0-2.0); EOSINOPHILS % 0.2 % (0.0-5.0); HEMATOCRIT. 39.5 % (42.0-52.0); HEMOGLOBIN. 13.4 g/dL (14.0-18.0); LYMPHOCYTES % 19.4 % (20.0-50.0); MEAN CORPUSCULAR HEMOGLOBIN 29.6 pg (28.0-32.0); MEAN CORPUSCULAR VOLUME 86.8 fL (80.0-94.0); MEAN PLATELET VOLUME 7.1 fl (7.4-10.4); MONOCYTES % 7.9 % (2.0-8.0); NEUTROPHILS % 72.2 % (40.0-76.0); PLATELET 393 x1000/uL (130-400); RED BLOOD CELL COUNT 4.55 mill/uL (4.7-6.1); RED CELL DISTRIBUTION WIDTH 15.2 % (11.6-14.6)
[2018-09-26 07:11] LABS: CHLORIDE 101 mEq/L (98-107)
[2018-09-26] MEDS ORDERED: AMLODIPINE 5MG TABLET PO SCH (09:00)
== END 2018-09-26 07:29 | disposition left against medical advice (07) | DRG 203 ==
LOC: ER 19:09 → 5WST 09-25 01:10 → ENRESERV 09-25 02:48 → CANRESERV 09-25 02:48 → ENRESERV 09-25 02:57 → 5WST 09-25 17:52
PROVIDERS: ADMIT Internal Medicine Geriatric Medicine; ATTEND Internal Medicine Geriatric Medicine
DX: M94.0 Chondrocostal junction syndrome [Tietze] (principal); I11.9 Hypertensive heart disease without heart failure; E11.65 Type 2 diabetes mellitus with hyperglycemia; F25.9 Schizoaffective disorder, unspecified; D63.8 Anemia in other chronic diseases classified elsewhere; E78.00 Pure hypercholesterolemia, unspecified; E78.5 Hyperlipidemia, unspecified; Z79.899 Other long term (current) drug therapy; F41.9 Anxiety disorder, unspecified; F32.9 Major depressive disorder, single episode, unspecified; R74.0 Nonspecific elevation of levels of transaminase and lactic acid dehydrogenase [LDH]; Z59.0 Homelessness; F19.10 Other psychoactive substance abuse, uncomplicated
CPT/HCPCS: 36415; 36600; 71045; 76700; 80061; 80305; 82375; 82805; 84484; 86705; 86709; 86803; 87340; 93005; 93306; 99285; J1650; J2060

== ENCOUNTER 2018-10-04 17:23 | Emergency (ER) | payer MEDICAID ==
[~2018-10-04] VITALS: Ht 172.7 cm; Wt 77.0 kg
[2018-10-04] MEDS ORDERED: SODIUM CHLORIDE 0.9% 1,000 ML IV ONE (19:23)
[2018-10-04] MEDS ORDERED: KETOROLAC 30MG/ML VIAL IV STA (19:23)
[2018-10-04 19:43] LABS: BASOPHILS % 0.6 % (0.0-2.0); EOSINOPHILS % 0.1 % (0.0-5.0); HEMATOCRIT. 42.1 % (42.0-52.0); HEMOGLOBIN. 14.2 g/dL (14.0-18.0); LYMPHOCYTES % 9.4 % (20.0-50.0); MEAN CORPUSCULAR HEMOGLOBIN 29.8 pg (28.0-32.0); MEAN CORPUSCULAR VOLUME 88.1 fL (80.0-94.0); MEAN PLATELET VOLUME 7.4 fl (7.4-10.4); MONOCYTES % 4.2 % (2.0-8.0); NEUTROPHILS % 85.7 % (40.0-76.0); PLATELET 343 x1000/uL (130-400); RED BLOOD CELL COUNT 4.77 mill/uL (4.7-6.1); RED CELL DISTRIBUTION WIDTH 14.5 % (11.6-14.6)
[2018-10-04 19:47] LABS: CHLORIDE 104 mEq/L (98-107)
[2018-10-04 19:53] LABS: ETHANOL BLOOD < 10 mg/dL
[2018-10-04] MEDS ORDERED: LORAZEPAM 2MG/ML CPJ IV ONE ×2 (20:30→21:30)
[2018-10-04 21:22] LABS: CLARITY URINE CLEAR (CLEAR); COLOR URINE YELLOW (YELLOW); KETONES URINE NEGATIVE (NEGATIVE); LEUKOCYTE ESTERASE URINE NEGATIVE (NEGATIVE); NITRITE URINE NEGATIVE (NEGATIVE); OCCULT BLOOD URINE NEGATIVE (NEGATIVE); PH URINE 6.5 (4.5-8.0); PROTEIN URINE NEGATIVE (NEGATIVE); SPECIFIC GRAVITY URINE 1.004 (1.005-1.030); UROBILINOGEN URINE 0.2 E.U./dL (0.2-1.0)
[2018-10-04 21:35] LABS: *AMPHETAMINES SCREEN URINE PRESUMTIVE POSITIVE (NEGATIVE); *BARBITURATES SCREEN URINE NEGATIVE (NEGATIVE); *BENZODIAZEPINES SCREEN URINE NEGATIVE (NEGATIVE); *COCAINE SCREEN URINE NEGATIVE (NEGATIVE)
[2018-10-04 21:36] LABS: CANNABINOID URINE SCREEN NEGATIVE (NEGATIVE); METHADONE URINE SCREEN NEGATIVE (NEGATIVE); OPIATES URINE SCREEN NEGATIVE (NEGATIVE); PHENCYCLIDINE URINE SCREEN NEGATIVE (NEGATIVE)
[2018-10-04 23:07] VITALS: BP 121/82
== END 2018-10-04 23:19 | disposition home or self-care (01) ==
LOC: ER 17:23
DX: T43.621A Poisoning by amphetamines, accidental (unintentional), initial encounter (principal); R07.89 Other chest pain; R00.0 Tachycardia, unspecified; F15.10 Other stimulant abuse, uncomplicated; F41.8 Other specified anxiety disorders; R03.0 Elevated blood-pressure reading, without diagnosis of hypertension; Y92.89 Other specified places as the place of occurrence of the external cause; Z71.51 Drug abuse counseling and surveillance of drug abuser
CPT/HCPCS: 36415; 71045; 80053; 80305; 80320; 81003; 83690; 84484; 85025; 93005; 96374; 96375; 99284; J1885; J2060; J7030; G0480

== ENCOUNTER 2018-10-13 18:43 | Emergency (ER) | payer MEDICAID ==
[~2018-10-13] VITALS: Ht 182.9 cm; Wt 95.0 kg
[2018-10-13] MEDS ORDERED: ASPIRIN 81MG TABLET PO ONE (22:45)
[2018-10-13 23:32] LABS: BASOPHILS % 0.7 % (0.0-2.0); EOSINOPHILS % 0.1 % (0.0-5.0); HEMATOCRIT. 38.7 % (42.0-52.0); LYMPHOCYTES % 22.3 % (20.0-50.0); MEAN CORPUSCULAR HEMOGLOBIN 30.1 pg (28.0-32.0); MEAN CORPUSCULAR VOLUME 89.9 fL (80.0-94.0); MEAN PLATELET VOLUME 7.6 fl (7.4-10.4); MONOCYTES % 8.5 % (2.0-8.0); NEUTROPHILS % 68.4 % (40.0-76.0); PLATELET 228 x1000/uL (130-400); RED BLOOD CELL COUNT 4.31 mill/uL (4.7-6.1); RED CELL DISTRIBUTION WIDTH 14.6 % (11.6-14.6)
[2018-10-13 23:36] LABS: CHLORIDE 110 mEq/L (98-107)
[2018-10-14] MEDS ORDERED: ACETAMINOPHEN 500MG TABLET PO ONE (00:30)
[2018-10-14 00:48] VITALS: BP 120/65
== END 2018-10-14 00:50 | disposition home or self-care (01) ==
LOC: ER 18:43
DX: R07.89 Other chest pain (principal); F15.10 Other stimulant abuse, uncomplicated; R00.0 Tachycardia, unspecified; R03.0 Elevated blood-pressure reading, without diagnosis of hypertension
CPT/HCPCS: 36415; 71045; 80053; 84484; 85025; 93005; 99284; Z7610

== ENCOUNTER 2018-11-10 15:37 | Emergency (ER) | payer MEDICAID ==
[~2018-11-10] VITALS: Ht 180.3 cm; Wt 82.0 kg
[2018-11-10] MEDS ORDERED: SODIUM CHLORIDE 0.9% 1,000 ML IV ONE ×2 (18:04→20:38)
[2018-11-10] MEDS ORDERED: ONDANSETRON HCL 4MG/2ML INJ IV STA (18:04)
[2018-11-10] MEDS ORDERED: LORAZEPAM 2MG/ML CPJ IV ONE ×2 (18:15→20:45)
[2018-11-10] MEDS ORDERED: DIPHENHYDRAMINE 50MG/ML VIAL IV ONE (18:15)
[2018-11-10 19:57] LABS: *AMPHETAMINES SCREEN URINE PRESUMTIVE POSITIVE (NEGATIVE)
[2018-11-10 19:58] LABS: *BARBITURATES SCREEN URINE NEGATIVE (NEGATIVE); *BENZODIAZEPINES SCREEN URINE NEGATIVE (NEGATIVE); *COCAINE SCREEN URINE NEGATIVE (NEGATIVE); METHADONE URINE SCREEN NEGATIVE (NEGATIVE); OPIATES URINE SCREEN NEGATIVE (NEGATIVE); PHENCYCLIDINE URINE SCREEN NEGATIVE (NEGATIVE)
[2018-11-10 19:59] LABS: CANNABINOID URINE SCREEN PRESUMTIVE POSITIVE (NEGATIVE)
[2018-11-10 20:19] LABS: CHLORIDE 104 mEq/L (98-107); PARTIAL THROMBOPLASTIN TIME 24.9 sec (23.4-31.0)
[2018-11-10 20:20] LABS: BASOPHILS % 0.3 % (0.0-2.0); EOSINOPHILS % 0.1 % (0.0-5.0); HEMATOCRIT. 39.3 % (42.0-52.0); HEMOGLOBIN. 13.3 g/dL (14.0-18.0); LYMPHOCYTES % 16.1 % (20.0-50.0); MEAN CORPUSCULAR HEMOGLOBIN 29.6 pg (28.0-32.0); MEAN CORPUSCULAR VOLUME 87.4 fL (80.0-94.0); MONOCYTES % 8.9 % (2.0-8.0); NEUTROPHILS % 74.6 % (40.0-76.0); PLATELET 260 x1000/uL (130-400); RED CELL DISTRIBUTION WIDTH 14.1 % (11.6-14.6)
[2018-11-10 20:30] LABS: CREATINE KINASE 864 IU/L (39-308)
[2018-11-10 20:34] LABS: CREATINE KINASE MB FRACTION 3.6 ng/mL (0.5-3.6); ETHANOL BLOOD < 10 mg/dL
[2018-11-10 23:45] VITALS: BP 141/87
== END 2018-11-10 23:55 | disposition home or self-care (01) ==
LOC: ER 16:51
DX: T43.621A Poisoning by amphetamines, accidental (unintentional), initial encounter (principal); R00.0 Tachycardia, unspecified; R11.0 Nausea; F15.188 Other stimulant abuse with other stimulant-induced disorder; M62.82 Rhabdomyolysis; F65.2 Exhibitionism; F99 Mental disorder, not otherwise specified; Y92.89 Other specified places as the place of occurrence of the external cause
CPT/HCPCS: 36415; 71045; 80053; 80305; 80320; 82550; 82553; 83690; 83880; 84443; 84484; 85025; 85610; 85730; 93005; 96374; 96375; 96376; 99284; J1200; J2060; J2405; J7030; Z7610; G0480

== ENCOUNTER 2018-11-19 19:15 | Emergency (ER) | payer MEDICAID ==
[~2018-11-19] VITALS: Ht 185.4 cm; Wt 82.0 kg
[2018-11-19] MEDS ORDERED: DIAZEPAM 5 MG/ML 2ML CPJ IV ONE (19:45)
[2018-11-19] MEDS ORDERED: SODIUM CHLORIDE 0.9% 1000ML BAG (SEPSIS BOLUS) IV ONE (19:45)
[2018-11-19] MEDS ORDERED: ASPIRIN 81MG TABLET PO ONE (19:45)
[2018-11-19 20:21] LABS: CHLORIDE 105 mEq/L (98-107)
[2018-11-19 20:30] LABS: BASOPHILS % 0.4 % (0.0-2.0); EOSINOPHILS % 0.6 % (0.0-5.0); HEMATOCRIT. 41.2 % (42.0-52.0); HEMOGLOBIN. 13.8 g/dL (14.0-18.0); LYMPHOCYTES % 30.5 % (20.0-50.0); MEAN CORPUSCULAR HEMOGLOBIN 29.6 pg (28.0-32.0); MEAN CORPUSCULAR VOLUME 88.2 fL (80.0-94.0); MEAN PLATELET VOLUME 7.5 fl (7.4-10.4); MONOCYTES % 10.4 % (2.0-8.0); NEUTROPHILS % 58.1 % (40.0-76.0); PLATELET 219 x1000/uL (130-400); RED BLOOD CELL COUNT 4.67 mill/uL (4.7-6.1); RED CELL DISTRIBUTION WIDTH 13.2 % (11.6-14.6)
[2018-11-19] MEDS ORDERED: POTASSIUM CHLORIDE 20MEQ TABLET SR PO SCH (23:15)
[2018-11-20] MEDS ORDERED: LORAZEPAM 1MG TABLET PO ONE (00:15)
[2018-11-20 00:50] LABS: *AMPHETAMINES SCREEN URINE PRESUMTIVE POSITIVE (NEGATIVE); *BARBITURATES SCREEN URINE NEGATIVE (NEGATIVE); *BENZODIAZEPINES SCREEN URINE PRESUMTIVE POSITIVE (NEGATIVE); *COCAINE SCREEN URINE NEGATIVE (NEGATIVE)
[2018-11-20 00:52] LABS: CANNABINOID URINE SCREEN PRESUMTIVE POSITIVE (NEGATIVE); METHADONE URINE SCREEN NEGATIVE (NEGATIVE); OPIATES URINE SCREEN NEGATIVE (NEGATIVE); PHENCYCLIDINE URINE SCREEN NEGATIVE (NEGATIVE)
[2018-11-20] MEDS ORDERED: DIPHENHYDRAMINE 50MG CAPSULE PO ONE (01:15)
[2018-11-20 06:26] VITALS: BP 140/80
== END 2018-11-20 09:39 | disposition home or self-care (01) ==
LOC: ER 19:15
DX: R07.89 Other chest pain (principal); F19.10 Other psychoactive substance abuse, uncomplicated; F15.10 Other stimulant abuse, uncomplicated; I10 Essential (primary) hypertension
CPT/HCPCS: 36415; 71045; 80053; 80305; 83880; 84484; 85025; 93005; 96374; 99284; J3360; J7030; Q0163; Z7610

== ENCOUNTER 2018-11-20 12:06 | Emergency (ER) | payer MEDICAID ==
[~2018-11-20] VITALS: Ht 175.3 cm; Wt 82.0 kg
[2018-11-20 15:48] VITALS: BP 132/89
== END 2018-11-20 15:40 | disposition home or self-care (01) ==
LOC: ER 12:06
DX: K64.4 Residual hemorrhoidal skin tags (principal); F15.10 Other stimulant abuse, uncomplicated; I10 Essential (primary) hypertension; F17.290 Nicotine dependence, other tobacco product, uncomplicated
CPT/HCPCS: 99283

== ENCOUNTER 2018-12-03 18:45 | Inpatient (IN) | payer MEDICAID ==
[~2018-12-03] VITALS: Ht 177.8 cm; Wt 77.6 kg
[2018-12-03] MEDS ORDERED: SODIUM CHLORIDE 0.9% 1000ML BAG (SEPSIS BOLUS) IV ONE (21:45)
[2018-12-03 23:33] LABS: BASOPHILS % 0.4 % (0.0-2.0); EOSINOPHILS % 0.2 % (0.0-5.0); HEMATOCRIT. 39.4 % (42.0-52.0); HEMOGLOBIN. 13.4 g/dL (14.0-18.0); LYMPHOCYTES % 16.4 % (20.0-50.0); MEAN CORPUSCULAR HEMOGLOBIN 29.4 pg (28.0-32.0); MEAN CORPUSCULAR VOLUME 86.6 fL (80.0-94.0); MEAN PLATELET VOLUME 7.3 fl (7.4-10.4); MONOCYTES % 3.6 % (2.0-8.0); NEUTROPHILS % 79.4 % (40.0-76.0); PLATELET 278 x1000/uL (130-400); RED BLOOD CELL COUNT 4.55 mill/uL (4.7-6.1); RED CELL DISTRIBUTION WIDTH 13.6 % (11.6-14.6)
[2018-12-03 23:34] LABS: CHLORIDE 106 mEq/L (98-107); PROTHROMBIN TIME 10.6 sec (9.6-11.0)
[2018-12-04 00:36] LABS: CLARITY URINE CLEAR (CLEAR); COLOR URINE YELLOW (YELLOW); KETONES URINE NEGATIVE (NEGATIVE); LEUKOCYTE ESTERASE URINE NEGATIVE (NEGATIVE); NITRITE URINE NEGATIVE (NEGATIVE); OCCULT BLOOD URINE NEGATIVE (NEGATIVE); PH URINE 7.5 (4.5-8.0); PROTEIN URINE NEGATIVE (NEGATIVE); SPECIFIC GRAVITY URINE 1.006 (1.005-1.030); UROBILINOGEN URINE 0.2 E.U./dL (0.2-1.0)
[2018-12-04 00:56] LABS: OPIATES URINE SCREEN NEGATIVE (NEGATIVE)
[2018-12-04 00:57] LABS: *AMPHETAMINES SCREEN URINE PRESUMTIVE POSITIVE (NEGATIVE); *BARBITURATES SCREEN URINE NEGATIVE (NEGATIVE); *BENZODIAZEPINES SCREEN URINE NEGATIVE (NEGATIVE); *COCAINE SCREEN URINE NEGATIVE (NEGATIVE); CANNABINOID URINE SCREEN NEGATIVE (NEGATIVE); PHENCYCLIDINE URINE SCREEN NEGATIVE (NEGATIVE)
[2018-12-04 00:58] LABS: METHADONE URINE SCREEN NEGATIVE (NEGATIVE)
[2018-12-04 05:24] VITALS: BP 130/82
[2018-12-04] MEDS ORDERED: LORAZEPAM 2MG/ML CPJ IV PRN (07:45)
[2018-12-04] MEDS ORDERED: HYDROCODONE/ACETAMINOPHEN 10/325MG TABLET PO PRN (07:45)
[2018-12-04] MEDS ORDERED: MAGNESIUM/ALUMINUM HYDROXIDE/SIMETHICONE 30ML UDC PO PRN (07:45)
[2018-12-04] MEDS ORDERED: DIPHENHYDRAMINE 50MG/ML VIAL IV PRN (07:45)
[2018-12-04] MEDS ORDERED: IPRATROPIUM/ALBUTEROL 0.5-3(2.5)MG/3ML NEB HHN PRN (07:45)
[2018-12-04] MEDS ORDERED: CLONIDINE 0.1MG TABLET PO PRN (07:45)
[2018-12-04] MEDS ORDERED: ACETAMINOPHEN 325MG TABLET PO PRN (07:45)
[2018-12-04] MEDS ORDERED: MORPHINE SULFATE 2 MG/ML CPJ (NOT FOR IM USE) IV PRN (07:45)
[2018-12-04] MEDS ORDERED: ONDANSETRON HCL 4MG/2ML INJ IV PRN (07:45)
[2018-12-04] MEDS ORDERED: NA PHOS,M-B/NA PHOS,DI-BA ENEMA 118ML PR PRN (07:45)
[2018-12-04] MEDS ORDERED: DOCUSATE SODIUM 100MG CAPSULE PO PRN (07:45)
[2018-12-04] MEDS ORDERED: HYDRALAZINE 20MG/ML VIAL IV PRN (07:45)
[2018-12-04] MEDS ORDERED: GUAIFENESIN 200MG/10ML SUGAR FREE UDC PO PRN (07:45)
[2018-12-04 08:00] VITALS: BP 163/82
[2018-12-04] MEDS ORDERED: ENOXAPARIN 40MG/0.4ML SYR SUBCUT SCH (09:00)
[2018-12-04 11:18] VITALS: BP 147/86
[2018-12-04 12:00] VITALS: BP 147/86
[2018-12-04] MEDS ORDERED: SODIUM CHLORIDE 0.9% INJ 3ML FLUSH IVF SCH (14:00)
== END 2018-12-04 13:01 | disposition home or self-care (01) | DRG 201 ==
LOC: ER 19:01 → EDBEDREQDT 12-04 00:51 → EDBEDREQSVC 12-04 00:51 → EDBEDREQTM 12-04 00:51 → EDBEDREQ 12-04 00:51 → ENRESERV 12-04 03:29 → 6WST 12-04 05:28
PROVIDERS: ADMIT Internal Medicine; ATTEND Internal Medicine
DX: R00.0 Tachycardia, unspecified (principal); E87.2 Acidosis; F20.9 Schizophrenia, unspecified; E78.00 Pure hypercholesterolemia, unspecified; F15.90 Other stimulant use, unspecified, uncomplicated; I10 Essential (primary) hypertension; F41.9 Anxiety disorder, unspecified; T43.625A Adverse effect of amphetamines, initial encounter
CPT/HCPCS: 36415; 71045; 80305; 81003; 83605; 84145; 84484; 93005; 96360; 96361; 99291; J0360; J1650; J7030

== ENCOUNTER 2018-12-13 19:30 | Emergency (ER) | payer MEDICAID ==
[~2018-12-13] VITALS: Ht 177.8 cm; Wt 81.0 kg
[2018-12-13] MEDS ORDERED: NITROGLYCERIN 0.4MG TABLET SL SL ONE (21:30)
[2018-12-13 21:53] LABS: BASOPHILS % 0.6 % (0.0-2.0); EOSINOPHILS % 0.1 % (0.0-5.0); HEMATOCRIT. 41.3 % (42.0-52.0); HEMOGLOBIN. 13.9 g/dL (14.0-18.0); LYMPHOCYTES % 12.2 % (20.0-50.0); MEAN CORPUSCULAR HEMOGLOBIN 29.5 pg (28.0-32.0); MEAN CORPUSCULAR VOLUME 87.5 fL (80.0-94.0); MEAN PLATELET VOLUME 7.3 fl (7.4-10.4); MONOCYTES % 5.1 % (2.0-8.0); PLATELET 259 x1000/uL (130-400); RED BLOOD CELL COUNT 4.72 mill/uL (4.7-6.1); RED CELL DISTRIBUTION WIDTH 13.8 % (11.6-14.6)
[2018-12-13 21:56] LABS: CHLORIDE 105 mEq/L (98-107)
[2018-12-13] MEDS ORDERED: MAGNESIUM/ALUMINUM HYDROXIDE/SIMETHICONE 30ML UDC PO ONE (23:00)
[2018-12-13] MEDS ORDERED: VISCOUS LIDOCAINE 2% 15 ML UDC PO ONE (23:00)
[2018-12-13 23:17] VITALS: BP 126/81
== END 2018-12-13 23:22 | disposition home or self-care (01) ==
LOC: ER 19:30 → CANBEDREQ 23:47
DX: R07.89 Other chest pain (principal); F15.10 Other stimulant abuse, uncomplicated; I10 Essential (primary) hypertension; F41.9 Anxiety disorder, unspecified; F17.210 Nicotine dependence, cigarettes, uncomplicated
CPT/HCPCS: 36415; 71045; 83880; 84484; 93005; 99284

== ENCOUNTER 2019-01-21 17:21 | Emergency (ER) | payer MEDICAID ==
[~2019-01-21] VITALS: Ht 180.3 cm; Wt 70.0 kg
[2019-01-21 21:57] LABS: CHLORIDE 106 mEq/L (98-107)
[2019-01-21 22:06] LABS: BASOPHILS % 0.8 % (0.0-2.0); EOSINOPHILS % 0.4 % (0.0-5.0); HEMATOCRIT. 39.5 % (42.0-52.0); HEMOGLOBIN. 13.2 g/dL (14.0-18.0); LYMPHOCYTES % 30.8 % (20.0-50.0); MEAN CORPUSCULAR HEMOGLOBIN 28.5 pg (28.0-32.0); MEAN CORPUSCULAR VOLUME 85.2 fL (80.0-94.0); MEAN PLATELET VOLUME 7.3 fl (7.4-10.4); MONOCYTES % 8.5 % (2.0-8.0); NEUTROPHILS % 59.5 % (40.0-76.0); PLATELET 293 x1000/uL (130-400); RED BLOOD CELL COUNT 4.63 mill/uL (4.7-6.1); RED CELL DISTRIBUTION WIDTH 14.4 % (11.6-14.6)
[2019-01-21] MEDS: ACETAMINOPHEN 325MG TABLET PO STA (22:14)
[2019-01-21] MEDS: ASPIRIN 81MG TABLET PO ONE (22:14)
[2019-01-21 23:53] VITALS: BP 131/74
== END 2019-01-21 23:56 | disposition home or self-care (01) ==
LOC: ER 17:21
DX: R07.89 Other chest pain (principal); F41.9 Anxiety disorder, unspecified; J45.909 Unspecified asthma, uncomplicated; I10 Essential (primary) hypertension; Z79.899 Other long term (current) drug therapy
CPT/HCPCS: 36415; 71045; 80053; 84484; 85025; 93005; 99284; Z7610

== ENCOUNTER 2019-02-17 10:49 | Emergency (ER) | payer MEDICAID ==
[~2019-02-17] VITALS: Ht 177.8 cm; Wt 81.0 kg
[2019-02-17 11:18] VITALS: BP 132/79
[2019-02-17] MEDS ORDERED: IBUPROFEN 600MG TABLET PO ONE (12:45)
== END 2019-02-17 13:16 | disposition home or self-care (01) ==
LOC: ER 10:49
DX: Z48.00 Encounter for change or removal of nonsurgical wound dressing (principal); J30.9 Allergic rhinitis, unspecified
CPT/HCPCS: 99283

== ENCOUNTER 2019-02-26 17:37 | Emergency (ER) | payer MEDICAID ==
[~2019-02-26] VITALS: Ht 180.3 cm; Wt 89.0 kg
[2019-02-26] MEDS ORDERED: LORAZEPAM 2MG/ML CPJ IM STA (17:40)
[2019-02-26] MEDS ORDERED: SODIUM CHLORIDE 0.9% 1,000 ML IV ONE (17:40)
[2019-02-26] MEDS ORDERED: HALOPERIDOL LACTATE 5MG/ML VIAL IM STA (17:40)
[2019-02-26 18:08] LABS: BASOPHILS % 0.6 % (0.0-2.0); EOSINOPHILS % 0.1 % (0.0-5.0); HEMATOCRIT. 39.2 % (42.0-52.0); HEMOGLOBIN. 13.1 g/dL (14.0-18.0); LYMPHOCYTES % 22.6 % (20.0-50.0); MEAN CORPUSCULAR HEMOGLOBIN 28.5 pg (28.0-32.0); MEAN CORPUSCULAR VOLUME 84.9 fL (80.0-94.0); MEAN PLATELET VOLUME 7.3 fl (7.4-10.4); MONOCYTES % 7.4 % (2.0-8.0); NEUTROPHILS % 69.3 % (40.0-76.0); PLATELET 273 x1000/uL (130-400); RED BLOOD CELL COUNT 4.61 mill/uL (4.7-6.1); RED CELL DISTRIBUTION WIDTH 15.3 % (11.6-14.6)
[2019-02-26 18:15] LABS: CHLORIDE 107 mEq/L (98-107)
[2019-02-26 18:19] LABS: ETHANOL BLOOD < 10 mg/dL
[2019-02-26] MEDS ORDERED: BACITRACIN ZINC OINT UDPKT TOP ONE ×2 (19:04→19:15)
[2019-02-26] MEDS ORDERED: LORAZEPAM 1MG TABLET PO ONE (21:45)
[2019-02-27] MEDS ORDERED: DIPHENHYDRAMINE 50MG CAPSULE PO ONE (09:30)
[2019-02-27 13:03] LABS: CLARITY URINE CLEAR (CLEAR); KETONES URINE NEGATIVE (NEGATIVE); LEUKOCYTE ESTERASE URINE NEGATIVE (NEGATIVE); NITRITE URINE NEGATIVE (NEGATIVE); OCCULT BLOOD URINE NEGATIVE (NEGATIVE); PROTEIN URINE NEGATIVE (NEGATIVE); SPECIFIC GRAVITY URINE 1.004 (1.005-1.030); UROBILINOGEN URINE 0.2 E.U./dL (0.2-1.0)
[2019-02-27 13:07] LABS: COLOR URINE PALE YELLOW (YELLOW)
[2019-02-27 13:17] LABS: *AMPHETAMINES SCREEN URINE PRESUMTIVE POSITIVE (NEGATIVE); *BARBITURATES SCREEN URINE NEGATIVE (NEGATIVE); *BENZODIAZEPINES SCREEN URINE NEGATIVE (NEGATIVE); *COCAINE SCREEN URINE NEGATIVE (NEGATIVE); METHADONE URINE SCREEN NEGATIVE (NEGATIVE); OPIATES URINE SCREEN NEGATIVE (NEGATIVE)
[2019-02-27 13:18] LABS: CANNABINOID URINE SCREEN NEGATIVE (NEGATIVE); PHENCYCLIDINE URINE SCREEN NEGATIVE (NEGATIVE)
[2019-02-27 13:48] VITALS: BP 132/93
== END 2019-02-27 14:11 | disposition home or self-care (01) ==
LOC: ER 17:37
DX: F29 Unspecified psychosis not due to a substance or known physiological condition (principal); R45.851 Suicidal ideations; Z79.899 Other long term (current) drug therapy
CPT/HCPCS: 36415; 80053; 80305; 80307; 80320; 80329; 81003; 85025; 93005; 96361; 96372; 99284; J7030; Q0163; Z7610; A4565; G0480

== ENCOUNTER 2019-03-24 16:06 | Emergency (ER) | payer MEDICAID ==
[~2019-03-24] VITALS: Ht 175.3 cm; Wt 75.0 kg
[2019-03-24] MEDS ORDERED: LORAZEPAM 2MG/ML CPJ IV ONE ×2 (18:45→19:45)
[2019-03-24 18:52] LABS: BASOPHILS % 0.5 % (0.0-2.0); EOSINOPHILS % 0.1 % (0.0-5.0); HEMOGLOBIN. 13.9 g/dL (14.0-18.0); MEAN CORPUSCULAR HEMOGLOBIN 28.6 pg (28.0-32.0); MEAN CORPUSCULAR VOLUME 84.2 fL (80.0-94.0); MEAN PLATELET VOLUME 7.7 fl (7.4-10.4); MONOCYTES % 7.5 % (2.0-8.0); NEUTROPHILS % 74.9 % (40.0-76.0); PLATELET 371 x1000/uL (130-400); RED BLOOD CELL COUNT 4.87 mill/uL (4.7-6.1); RED CELL DISTRIBUTION WIDTH 15.9 % (11.6-14.6)
[2019-03-24 19:44] LABS: CHLORIDE 105 mEq/L (98-107)
[2019-03-24 19:48] LABS: ETHANOL BLOOD < 10 mg/dL
[2019-03-24 19:52] LABS: CREATINE KINASE 715 IU/L (39-308)
[2019-03-24] MEDS ORDERED: OLANZAPINE 10 MG/VIAL IM ONE (22:00)
[2019-03-25] MEDS ORDERED: DIPHENHYDRAMINE 50MG CAPSULE PO ONE (02:45)
[2019-03-25] MEDS ORDERED: LORAZEPAM 0.5MG TABLET PO ONE (02:45)
[2019-03-25 11:02] LABS: CLARITY URINE CLEAR (CLEAR); COLOR URINE YELLOW (YELLOW); KETONES URINE NEGATIVE (NEGATIVE); LEUKOCYTE ESTERASE URINE NEGATIVE (NEGATIVE); NITRITE URINE NEGATIVE (NEGATIVE); OCCULT BLOOD URINE NEGATIVE (NEGATIVE); PROTEIN URINE NEGATIVE (NEGATIVE); SPECIFIC GRAVITY URINE 1.012 (1.005-1.030); UROBILINOGEN URINE 0.2 E.U./dL (0.2-1.0)
[2019-03-25 11:11] LABS: *AMPHETAMINES SCREEN URINE PRESUMTIVE POSITIVE (NEGATIVE); *BARBITURATES SCREEN URINE NEGATIVE (NEGATIVE); *BENZODIAZEPINES SCREEN URINE NEGATIVE (NEGATIVE); *COCAINE SCREEN URINE NEGATIVE (NEGATIVE); METHADONE URINE SCREEN NEGATIVE (NEGATIVE); OPIATES URINE SCREEN NEGATIVE (NEGATIVE)
[2019-03-25 11:12] LABS: CANNABINOID URINE SCREEN PRESUMTIVE POSITIVE (NEGATIVE); PHENCYCLIDINE URINE SCREEN NEGATIVE (NEGATIVE)
[2019-03-25] MEDS ORDERED: DIPHENHYDRAMINE 50MG/ML VIAL IM ONE (16:15)
[2019-03-25 23:04] VITALS: BP 128/65
== END 2019-03-25 23:19 ==
LOC: ER 16:06
DX: F41.9 Anxiety disorder, unspecified (principal); R45.850 Homicidal ideations; J45.909 Unspecified asthma, uncomplicated; F17.290 Nicotine dependence, other tobacco product, uncomplicated
CPT/HCPCS: 36415; 80053; 80305; 80307; 80320; 80329; 81003; 82550; 85025; 93005; 96372; 96374; 96376; 99285; 99406; J1200; J2060; J3490; Q0163; 99284; G0480

== ENCOUNTER 2019-04-07 12:32 | Emergency (ER) | payer MEDICAID ==
[~2019-04-07] VITALS: Ht 177.8 cm; Wt 80.0 kg
[2019-04-07] MEDS ORDERED: SODIUM CHLORIDE 0.9% 1,000 ML IV ONE (14:48)
[2019-04-07] MEDS ORDERED: DIPHENHYDRAMINE 50MG/ML VIAL IV ONE (15:00)
[2019-04-07] MEDS ORDERED: LIDOCAINE HCL/PF 1% 10 MG/ML 5ML VIAL IJ ONE (15:00)
[2019-04-07] MEDS ORDERED: LORAZEPAM 2MG/ML CPJ IV ONE ×3 (15:00→17:45)
[2019-04-07] MEDS ORDERED: TETANUS, DIPHTHERIA, PERTUSSIS VAC/PF 0.5ML (>7YR OLD) IM ONE (15:00)
[2019-04-07] MEDS ORDERED: LIDOCAINE 1%/EPI 1:100,000 10 ML VIAL IJ ONE (15:00)
[2019-04-07 15:15] LABS: HEMATOCRIT. 41.3 % (42.0-52.0); HEMOGLOBIN. 13.6 g/dL (14.0-18.0); MEAN CORPUSCULAR HEMOGLOBIN 27.9 pg (28.0-32.0); RED BLOOD CELL COUNT 4.86 mill/uL (4.7-6.1); RED CELL DISTRIBUTION WIDTH 16.1 % (11.6-14.6)
[2019-04-07 15:18] LABS: CHLORIDE 108 mEq/L (98-107)
[2019-04-07 15:23] LABS: ETHANOL BLOOD < 10 mg/dL
[2019-04-07 15:45] LABS: CLARITY URINE CLEAR (CLEAR); COLOR URINE YELLOW (YELLOW); KETONES URINE TRACE (NEGATIVE); LEUKOCYTE ESTERASE URINE NEGATIVE (NEGATIVE); NITRITE URINE NEGATIVE (NEGATIVE); OCCULT BLOOD URINE TRACE (NEGATIVE); PH URINE 5.5 (4.5-8.0); PROTEIN URINE TRACE (NEGATIVE); UROBILINOGEN URINE 0.2 E.U./dL (0.2-1.0)
[2019-04-07] MEDS ORDERED: OLANZAPINE 10 MG/VIAL IM ONE (15:45)
[2019-04-07 16:07] LABS: METHADONE URINE SCREEN NEGATIVE (NEGATIVE); OPIATES URINE SCREEN NEGATIVE (NEGATIVE); PHENCYCLIDINE URINE SCREEN NEGATIVE (NEGATIVE)
[2019-04-07 16:08] LABS: *AMPHETAMINES SCREEN URINE PRESUMTIVE POSITIVE (NEGATIVE); *BARBITURATES SCREEN URINE NEGATIVE (NEGATIVE); *BENZODIAZEPINES SCREEN URINE NEGATIVE (NEGATIVE); *COCAINE SCREEN URINE NEGATIVE (NEGATIVE); CANNABINOID URINE SCREEN PRESUMTIVE POSITIVE (NEGATIVE)
[2019-04-07 16:39] LABS: PLATELET ESTIMATE NORMAL
[2019-04-07 16:40] LABS: MEAN PLATELET VOLUME 8.5 fl (7.4-10.4); PLATELET 275 x1000/uL (130-400)
[2019-04-08] MEDS ORDERED: DIPHENHYDRAMINE 50MG CAPSULE PO ONE (03:00)
[2019-04-09] MEDS ORDERED: ACETAMINOPHEN 325MG TABLET PO ONE (07:30)
[2019-04-09 15:45] VITALS: BP 112/80
[2019-04-09] MEDS ORDERED: OLANZAPINE 10MG TABLET PO SCH (21:00)
== END 2019-04-09 16:19 ==
LOC: ER 12:32
DX: F15.10 Other stimulant abuse, uncomplicated (principal); R45.850 Homicidal ideations; R45.1 Restlessness and agitation; S01.511A Laceration without foreign body of lip, initial encounter; X58.XXXA Exposure to other specified factors, initial encounter; Y93.89 Activity, other specified; Y92.89 Other specified places as the place of occurrence of the external cause; Z78.1 Physical restraint status; R00.0 Tachycardia, unspecified
CPT/HCPCS: 36415; 70450; 80053; 80305; 80320; 81003; 85025; 90471; 90715; 96372; 96374; 96375; 96376; 99285; J1200; J2060; J3490; J7030; G0480

== ENCOUNTER 2019-05-05 14:23 | Emergency (ER) | payer MEDICAID ==
[~2019-05-05] VITALS: Ht 177.8 cm; Wt 82.0 kg
[2019-05-05 15:32] LABS: BASOPHILS % 0.7 % (0.0-2.0); EOSINOPHILS % 0.9 % (0.0-5.0); HEMATOCRIT. 37.1 % (42.0-52.0); HEMOGLOBIN. 12.5 g/dL (14.0-18.0); LYMPHOCYTES % 44.4 % (20.0-50.0); MEAN CORPUSCULAR VOLUME 83.3 fL (80.0-94.0); MEAN PLATELET VOLUME 7.1 fl (7.4-10.4); MONOCYTES % 12.2 % (2.0-8.0); NEUTROPHILS % 41.8 % (40.0-76.0); PLATELET 270 x1000/uL (130-400); RED BLOOD CELL COUNT 4.46 mill/uL (4.7-6.1); RED CELL DISTRIBUTION WIDTH 15.9 % (11.6-14.6)
[2019-05-05 15:34] LABS: CHLORIDE 104 mEq/L (98-107)
[2019-05-05 15:38] LABS: ETHANOL BLOOD 74 mg/dL
[2019-05-05 16:37] LABS: CLARITY URINE CLEAR (CLEAR); COLOR URINE YELLOW (YELLOW); KETONES URINE NEGATIVE (NEGATIVE); LEUKOCYTE ESTERASE URINE NEGATIVE (NEGATIVE); NITRITE URINE NEGATIVE (NEGATIVE); OCCULT BLOOD URINE NEGATIVE (NEGATIVE); PROTEIN URINE NEGATIVE (NEGATIVE); SPECIFIC GRAVITY URINE 1.002 (1.005-1.030); UROBILINOGEN URINE 0.2 E.U./dL (0.2-1.0)
[2019-05-05 17:00] LABS: *AMPHETAMINES SCREEN URINE PRESUMTIVE POSITIVE (NEGATIVE); *BARBITURATES SCREEN URINE NEGATIVE (NEGATIVE); *BENZODIAZEPINES SCREEN URINE NEGATIVE (NEGATIVE); *COCAINE SCREEN URINE NEGATIVE (NEGATIVE)
[2019-05-05 17:01] LABS: CANNABINOID URINE SCREEN NEGATIVE (NEGATIVE); METHADONE URINE SCREEN NEGATIVE (NEGATIVE); OPIATES URINE SCREEN NEGATIVE (NEGATIVE); PHENCYCLIDINE URINE SCREEN NEGATIVE (NEGATIVE)
[2019-05-05] MEDS ORDERED: DIPHENHYDRAMINE 25MG CAPSULE PO ONE (19:45)
[2019-05-05] MEDS ORDERED: IBUPROFEN 600MG TABLET PO ONE (19:45)
[2019-05-05 20:08] VITALS: BP 147/72
== END 2019-05-05 20:15 | disposition home or self-care (01) ==
LOC: ER 14:23
DX: R45.850 Homicidal ideations (principal); I10 Essential (primary) hypertension; F15.129 Other stimulant abuse with intoxication, unspecified; F10.129 Alcohol abuse with intoxication, unspecified; Z79.899 Other long term (current) drug therapy; Z48.02 Encounter for removal of sutures; Y90.3 Blood alcohol level of 60-79 mg/100 ml
CPT/HCPCS: 36415; 71045; 80053; 80305; 80307; 80320; 80329; 81003; 85025; 93005; 99285; G0480

== ENCOUNTER 2019-07-05 22:19 | Emergency (ER) | payer MEDICAID ==
[~2019-07-05] VITALS: Ht 177.8 cm; Wt 82.0 kg
[2019-07-05 22:27] VITALS: BP 154/98
[2019-07-06] MEDS ORDERED: LORAZEPAM 1MG TABLET PO ONE
[2019-07-06] MEDS ORDERED: ACETAMINOPHEN 500MG TABLET PO ONE (00:15)
== END 2019-07-06 02:56 | disposition home or self-care (01) ==
LOC: ER 22:19
DX: T43.621A Poisoning by amphetamines, accidental (unintentional), initial encounter (principal); R07.89 Other chest pain; R00.0 Tachycardia, unspecified; R03.0 Elevated blood-pressure reading, without diagnosis of hypertension; Y92.512 Supermarket, store or market as the place of occurrence of the external cause; E11.9 Type 2 diabetes mellitus without complications; Z79.899 Other long term (current) drug therapy
CPT/HCPCS: 93005; 99283

== ENCOUNTER 2019-08-10 19:31 | Emergency (ER) | payer MEDICAID ==
[2019-08-10] MEDS ORDERED: OLANZAPINE 10MG TABLET PO STA (21:08)
[2019-08-10 22:07] LABS: BASOPHILS % 0.6 % (0.0-2.0); EOSINOPHILS % 0.1 % (0.0-5.0); HEMATOCRIT. 40.8 % (42.0-52.0); HEMOGLOBIN. 13.7 g/dL (14.0-18.0); LYMPHOCYTES % 16.7 % (20.0-50.0); MEAN CORPUSCULAR VOLUME 83.6 fL (80.0-94.0); MEAN PLATELET VOLUME 7.6 fl (7.4-10.4); NEUTROPHILS % 73.6 % (40.0-76.0); PLATELET 250 x1000/uL (130-400); RED BLOOD CELL COUNT 4.88 mill/uL (4.7-6.1); RED CELL DISTRIBUTION WIDTH 17.5 % (11.6-14.6)
[2019-08-10 22:11] LABS: CHLORIDE 104 mEq/L (98-107)
[2019-08-10 22:15] LABS: ETHANOL BLOOD < 10 mg/dL
[2019-08-10] MEDS ORDERED: OLANZAPINE 10 MG/VIAL IM ONE (22:15)
[2019-08-10] MEDS ORDERED: DIPHENHYDRAMINE 50MG/ML VIAL IM ONE (22:15)
[2019-08-10] MEDS ORDERED: HALOPERIDOL LACTATE 5MG/ML VIAL IM ONE (23:15)
[2019-08-10 23:58] LABS: CLARITY URINE CLEAR (CLEAR); COLOR URINE YELLOW (YELLOW); KETONES URINE TRACE (NEGATIVE); LEUKOCYTE ESTERASE URINE NEGATIVE (NEGATIVE); NITRITE URINE NEGATIVE (NEGATIVE); OCCULT BLOOD URINE NEGATIVE (NEGATIVE); PROTEIN URINE 1+ (NEGATIVE); SPECIFIC GRAVITY URINE 1.035 (1.005-1.030)
[2019-08-11 00:07] LABS: *AMPHETAMINES SCREEN URINE PRESUMTIVE POSITIVE (NEGATIVE)
[2019-08-11 00:08] LABS: *BARBITURATES SCREEN URINE NEGATIVE (NEGATIVE); *BENZODIAZEPINES SCREEN URINE NEGATIVE (NEGATIVE); *COCAINE SCREEN URINE NEGATIVE (NEGATIVE); METHADONE URINE SCREEN NEGATIVE (NEGATIVE); OPIATES URINE SCREEN NEGATIVE (NEGATIVE); PHENCYCLIDINE URINE SCREEN NEGATIVE (NEGATIVE)
[2019-08-11 00:09] LABS: CANNABINOID URINE SCREEN PRESUMTIVE POSITIVE (NEGATIVE)
[2019-08-11] MEDS ORDERED: DIPHENHYDRAMINE 25MG CAPSULE PO ONE (06:30)
[2019-08-11 13:15] VITALS: BP 141/84
== END 2019-08-11 13:30 ==
LOC: ER 19:31
DX: F20.0 Paranoid schizophrenia (principal); R45.851 Suicidal ideations; R45.850 Homicidal ideations; R45.1 Restlessness and agitation; F15.988 Other stimulant use, unspecified with other stimulant-induced disorder
CPT/HCPCS: 36415; 80053; 80305; 80320; 81003; 85025; 93005; 96372; 99285; J1200; J1630; J3490; G0480

== ENCOUNTER 2019-10-06 00:09 | Emergency (ER) | payer MEDICAID ==
[~2019-10-06] VITALS: Ht 172.7 cm; Wt 82.0 kg
[2019-10-06] MEDS ORDERED: LORAZEPAM 2MG/ML CPJ IM STA (01:13)
[2019-10-06] MEDS ORDERED: OLANZAPINE 10 MG/VIAL IM STA (01:13)
[2019-10-06] MEDS ORDERED: SODIUM CHLORIDE 0.9% 1,000 ML IV ONE ×2 (01:13→04:01)
[2019-10-06 01:40] LABS: HEMATOCRIT. 38.1 % (42.0-52.0); HEMOGLOBIN. 12.8 g/dL (14.0-18.0); MEAN CORPUSCULAR HEMOGLOBIN 27.8 pg (28.0-32.0); MEAN CORPUSCULAR VOLUME 82.9 fL (80.0-94.0); MEAN PLATELET VOLUME 7.6 fl (7.4-10.4); PLATELET 234 x1000/uL (130-400); RED CELL DISTRIBUTION WIDTH 15.8 % (11.6-14.6)
[2019-10-06 01:45] LABS: CHLORIDE 110 mEq/L (98-107)
[2019-10-06 01:50] LABS: ETHANOL BLOOD < 10 mg/dL
[2019-10-06 03:33] LABS: CLARITY URINE CLEAR (CLEAR); COLOR URINE YELLOW (YELLOW); KETONES URINE TRACE (NEGATIVE); LEUKOCYTE ESTERASE URINE NEGATIVE (NEGATIVE); NITRITE URINE NEGATIVE (NEGATIVE); OCCULT BLOOD URINE 3+ (NEGATIVE); PROTEIN URINE 2+ (NEGATIVE); SPECIFIC GRAVITY URINE 1.031 (1.005-1.030)
[2019-10-06 03:34] LABS: *BARBITURATES SCREEN URINE NEGATIVE (NEGATIVE)
[2019-10-06 03:35] LABS: *AMPHETAMINES SCREEN URINE PRESUMTIVE POSITIVE (NEGATIVE); *BENZODIAZEPINES SCREEN URINE NEGATIVE (NEGATIVE); *COCAINE SCREEN URINE NEGATIVE (NEGATIVE); METHADONE URINE SCREEN NEGATIVE (NEGATIVE); OPIATES URINE SCREEN NEGATIVE (NEGATIVE); PHENCYCLIDINE URINE SCREEN NEGATIVE (NEGATIVE)
[2019-10-06 03:36] LABS: PLATELET ESTIMATE NORMAL
[2019-10-06 03:36] LABS: CANNABINOID URINE SCREEN PRESUMTIVE POSITIVE (NEGATIVE)
[2019-10-06] MEDS ORDERED: LORAZEPAM 2MG/ML CPJ IV ONE (04:15)
[2019-10-06 10:42] VITALS: BP 156/89
== END 2019-10-06 10:54 | disposition home or self-care (01) ==
LOC: ER 00:09
DX: R45.6 Violent behavior (principal); F15.129 Other stimulant abuse with intoxication, unspecified; F16.10 Hallucinogen abuse, uncomplicated; F12.10 Cannabis abuse, uncomplicated; R03.0 Elevated blood-pressure reading, without diagnosis of hypertension; R00.0 Tachycardia, unspecified; D64.9 Anemia, unspecified; Z78.1 Physical restraint status
CPT/HCPCS: 36415; 80053; 80305; 80307; 80320; 80329; 81003; 85025; 93005; 96361; 96372; 96374; 99284; J2060; J3490; J7030; G0480

== ENCOUNTER 2019-10-12 18:07 | Emergency (ER) | payer MEDICAID ==
[~2019-10-12] VITALS: Ht 175.3 cm; Wt 81.0 kg
[2019-10-12] MEDS ORDERED: IBUPROFEN 600MG TABLET PO STA (19:01)
[2019-10-12] MEDS ORDERED: SODIUM CHLORIDE 0.9% 1,000 ML IV ONE (19:01)
[2019-10-12] MEDS ORDERED: ACETAMINOPHEN 325MG TABLET PO STA (19:01)
[2019-10-12] MEDS ORDERED: LORAZEPAM 1MG TABLET PO ONE (20:45)
[2019-10-12 23:02] LABS: BASOPHILS % 0.9 % (0.0-2.0); HEMATOCRIT. 41.4 % (42.0-52.0); HEMOGLOBIN. 13.8 g/dL (14.0-18.0); LYMPHOCYTES % 26.6 % (20.0-50.0); MEAN CORPUSCULAR VOLUME 84.2 fL (80.0-94.0); MEAN PLATELET VOLUME 7.7 fl (7.4-10.4); NEUTROPHILS % 65.5 % (40.0-76.0); PLATELET 322 x1000/uL (130-400); RED BLOOD CELL COUNT 4.91 mill/uL (4.7-6.1)
[2019-10-12 23:56] LABS: CHLORIDE 103 mEq/L (98-107)
[2019-10-12 23:59] LABS: ETHANOL BLOOD < 10 mg/dL
[2019-10-13 00:39] VITALS: BP 145/98
== END 2019-10-13 00:46 | disposition home or self-care (01) ==
LOC: ER 18:07
DX: R07.89 Other chest pain (principal); R00.0 Tachycardia, unspecified; R03.0 Elevated blood-pressure reading, without diagnosis of hypertension
CPT/HCPCS: 36415; 71045; 80053; 80320; 83880; 84484; 85025; 93005; 96360; 99285; J7030; G0480

== ENCOUNTER 2019-10-17 15:31 | Emergency (ER) | payer MEDICAID ==
[~2019-10-17] VITALS: Ht 172.7 cm; Wt 73.0 kg
[2019-10-17 19:45] VITALS: BP 143/67
[2019-10-17] MEDS ORDERED: SODIUM CHLORIDE 0.9% 1,000 ML IV ONE (20:53)
[2019-10-17] MEDS ORDERED: HALOPERIDOL LACTATE 5MG/ML VIAL IM ONE (21:00)
[2019-10-17] MEDS ORDERED: OLANZAPINE 10 MG/VIAL IM ONE (21:00)
== END 2019-10-17 21:05 | disposition home or self-care (01) ==
LOC: ER 15:31
DX: T40.991A Poisoning by other psychodysleptics [hallucinogens], accidental (unintentional), initial encounter (principal); R00.0 Tachycardia, unspecified; R00.2 Palpitations; F16.188 Hallucinogen abuse with other hallucinogen-induced disorder; Y92.89 Other specified places as the place of occurrence of the external cause; I10 Essential (primary) hypertension; F41.9 Anxiety disorder, unspecified; F20.9 Schizophrenia, unspecified
CPT/HCPCS: 36415; 84484; 93005; 99284

== ENCOUNTER 2019-11-15 11:50 | Emergency (ER) | payer MEDICAID ==
[~2019-11-15] VITALS: Ht 177.8 cm; Wt 81.0 kg
[2019-11-15 12:11] VITALS: BP 115/57
== END 2019-11-15 15:00 | disposition left against medical advice (07) ==
LOC: ER 11:50
DX: Z53.21 Procedure and treatment not carried out due to patient leaving prior to being seen by health care provider (principal)

== ENCOUNTER 2019-12-08 15:41 | Emergency (ER) | payer MEDICAID ==
[~2019-12-08] VITALS: Ht 177.8 cm; Wt 82.0 kg
[2019-12-08] MEDS ORDERED: LORAZEPAM 1MG TABLET PO ONE ×2 (16:15→18:15)
[2019-12-08 16:56] LABS: BASOPHILS % 0.5 % (0.0-2.0); EOSINOPHILS % 0.1 % (0.0-5.0); HEMATOCRIT. 38.7 % (42.0-52.0); HEMOGLOBIN. 12.8 g/dL (14.0-18.0); MEAN CORPUSCULAR HEMOGLOBIN 27.3 pg (28.0-32.0); MEAN CORPUSCULAR VOLUME 82.7 fL (80.0-94.0); MEAN PLATELET VOLUME 7.4 fl (7.4-10.4); MONOCYTES % 6.6 % (2.0-8.0); NEUTROPHILS % 71.8 % (40.0-76.0); PLATELET 272 x1000/uL (130-400); RED BLOOD CELL COUNT 4.68 mill/uL (4.7-6.1); RED CELL DISTRIBUTION WIDTH 15.5 % (11.6-14.6)
[2019-12-08 17:15] LABS: CHLORIDE 103 mEq/L (98-107); ETHANOL BLOOD 35 mg/dL
[2019-12-08] MEDS ORDERED: POTASSIUM CHLORIDE 20MEQ TABLET SR PO ONE (19:00)
[2019-12-08] MEDS ORDERED: SODIUM CHLORIDE 0.9% 1,000 ML IV ONE (21:00)
[2019-12-08] MEDS ORDERED: LORAZEPAM 2MG/ML CPJ IV ONE (21:00)
[2019-12-08 21:50] LABS: *AMPHETAMINES SCREEN URINE PRESUMTIVE POSITIVE (NEGATIVE); *BARBITURATES SCREEN URINE NEGATIVE (NEGATIVE); *BENZODIAZEPINES SCREEN URINE NEGATIVE (NEGATIVE); *COCAINE SCREEN URINE NEGATIVE (NEGATIVE); CANNABINOID URINE SCREEN NEGATIVE (NEGATIVE); METHADONE URINE SCREEN NEGATIVE (NEGATIVE); OPIATES URINE SCREEN NEGATIVE (NEGATIVE); PHENCYCLIDINE URINE SCREEN NEGATIVE (NEGATIVE)
[2019-12-08 23:23] VITALS: BP 131/74
== END 2019-12-08 23:27 | disposition home or self-care (01) ==
LOC: ER 15:41
DX: R00.2 Palpitations (principal); E87.6 Hypokalemia; F15.10 Other stimulant abuse, uncomplicated; F16.10 Hallucinogen abuse, uncomplicated; Z79.899 Other long term (current) drug therapy; Z88.8 Allergy status to other drugs, medicaments and biological substances; Z98.890 Other specified postprocedural states
CPT/HCPCS: 36415; 71045; 80053; 80305; 80320; 83690; 84484; 85025; 93005; 96361; 96374; 99285; J2060; J7030; G0480

== ENCOUNTER 2019-12-31 17:47 | Emergency (ER) | payer MEDICAID ==
[~2019-12-31] VITALS: Ht 185.4 cm; Wt 91.0 kg
[2019-12-31] MEDS ORDERED: LORAZEPAM 0.5MG TABLET PO ONE (19:15)
[2019-12-31 19:47] LABS: CHLORIDE 107 mEq/L (98-107)
[2019-12-31 19:49] LABS: BASOPHILS % 0.2 % (0.0-2.0); HEMATOCRIT. 40.7 % (42.0-52.0); HEMOGLOBIN. 13.5 g/dL (14.0-18.0); LYMPHOCYTES % 15.7 % (20.0-50.0); MEAN CORPUSCULAR HEMOGLOBIN 27.6 pg (28.0-32.0); MEAN CORPUSCULAR VOLUME 83.4 fL (80.0-94.0); MEAN PLATELET VOLUME 7.6 fl (7.4-10.4); MONOCYTES % 5.6 % (2.0-8.0); NEUTROPHILS % 78.5 % (40.0-76.0); PLATELET 337 x1000/uL (130-400); RED BLOOD CELL COUNT 4.88 mill/uL (4.7-6.1); RED CELL DISTRIBUTION WIDTH 15.8 % (11.6-14.6)
[2019-12-31 19:51] LABS: ETHANOL BLOOD 36 mg/dL
[2019-12-31] MEDS ORDERED: LORAZEPAM 2MG/ML CPJ IM ONE (21:00)
[2019-12-31 22:52] LABS: CLARITY URINE CLEAR (CLEAR); COLOR URINE YELLOW (YELLOW); KETONES URINE TRACE (NEGATIVE); LEUKOCYTE ESTERASE URINE NEGATIVE (NEGATIVE); NITRITE URINE NEGATIVE (NEGATIVE); OCCULT BLOOD URINE NEGATIVE (NEGATIVE); PH URINE 5.5 (4.5-8.0); PROTEIN URINE 1+ (NEGATIVE); SPECIFIC GRAVITY URINE 1.025 (1.005-1.030); UROBILINOGEN URINE 0.2 E.U./dL (0.2-1.0)
[2019-12-31 23:12] LABS: *AMPHETAMINES SCREEN URINE PRESUMTIVE POSITIVE (NEGATIVE); *BARBITURATES SCREEN URINE NEGATIVE (NEGATIVE); *BENZODIAZEPINES SCREEN URINE NEGATIVE (NEGATIVE); CANNABINOID URINE SCREEN NEGATIVE (NEGATIVE)
[2019-12-31 23:13] LABS: *COCAINE SCREEN URINE NEGATIVE (NEGATIVE); METHADONE URINE SCREEN NEGATIVE (NEGATIVE); OPIATES URINE SCREEN NEGATIVE (NEGATIVE); PHENCYCLIDINE URINE SCREEN NEGATIVE (NEGATIVE)
[2020-01-01] MEDS ORDERED: LORAZEPAM 2MG/ML CPJ IM ONE (01:45)
[2020-01-01] MEDS ORDERED: DIPHENHYDRAMINE 50MG/ML VIAL IM ONE (01:45)
[2020-01-01] MEDS ORDERED: ZIPRASIDONE MESYLATE 20MG/VIAL IM ONE (02:30)
[2020-01-01] MEDS ORDERED: DIPHENHYDRAMINE 25MG CAPSULE PO ONE ×2 (16:00→16:45)
[2020-01-01] MEDS ORDERED: OLANZAPINE 10MG TABLET PO SCH (19:00)
[2020-01-02] MEDS ORDERED: ZIPRASIDONE MESYLATE 20MG/VIAL IM ONE (01:00)
[2020-01-02] MEDS ORDERED: DIPHENHYDRAMINE 25MG CAPSULE PO ONE (07:30)
[2020-01-02] MEDS ORDERED: DIPHENHYDRAMINE 25MG CAPSULE PO SCH (12:15)
[2020-01-03 00:13] VITALS: BP 151/76
== END 2020-01-03 00:37 ==
LOC: ER 17:47
DX: R45.850 Homicidal ideations (principal); I49.9 Cardiac arrhythmia, unspecified; Z88.8 Allergy status to other drugs, medicaments and biological substances
CPT/HCPCS: 36415; 80048; 80305; 80307; 80320; 80329; 81003; 85025; 93005; 96372; 99285; J1200; J2060; J3486; Q0163; G0480

== ENCOUNTER 2020-02-17 12:34 | Emergency (ER) | payer MEDICAID ==
[~2020-02-17] VITALS: Ht 177.8 cm; Wt 82.0 kg
[2020-02-17 12:43] VITALS: BP 130/71
[2020-02-17] MEDS ORDERED: DIPHENHYDRAMINE 50MG CAPSULE PO ONE (13:00)
== END 2020-02-17 13:14 | disposition home or self-care (01) ==
LOC: ER 12:34
DX: T78.40XA Allergy, unspecified, initial encounter (principal); F15.10 Other stimulant abuse, uncomplicated; Z98.890 Other specified postprocedural states; Z79.899 Other long term (current) drug therapy; Z88.8 Allergy status to other drugs, medicaments and biological substances; X58.XXXA Exposure to other specified factors, initial encounter
CPT/HCPCS: 99282; Q0163

== ENCOUNTER 2020-03-14 14:01 | Emergency (ER) | payer MEDICAID ==
[~2020-03-14] VITALS: Ht 165.1 cm; Wt 75.0 kg
[2020-03-14] MEDS ORDERED: KETOROLAC 30MG/ML VIAL IV STA (15:16)
[2020-03-14] MEDS ORDERED: SODIUM CHLORIDE 0.9% 1,000 ML IV ONE ×3 (15:30→23:15)
[2020-03-14 15:47] LABS: BASOPHILS % 0.7 % (0.0-2.0); EOSINOPHILS % 0.2 % (0.0-5.0); HEMATOCRIT. 38.5 % (42.0-52.0); HEMOGLOBIN. 12.7 g/dL (14.0-18.0); MEAN CORPUSCULAR HEMOGLOBIN 27.4 pg (28.0-32.0); MEAN CORPUSCULAR VOLUME 83.3 fL (80.0-94.0); MEAN PLATELET VOLUME 7.9 fl (7.4-10.4); MONOCYTES % 8.1 % (2.0-8.0); PLATELET 212 x1000/uL (130-400); RED BLOOD CELL COUNT 4.62 mill/uL (4.7-6.1); RED CELL DISTRIBUTION WIDTH 16.8 % (11.6-14.6)
[2020-03-14 15:51] LABS: CHLORIDE 105 mEq/L (98-107)
[2020-03-14] MEDS: POTASSIUM CHLORIDE 20MEQ TABLET SR PO NR ×2 (18:24→22:10)
[2020-03-14] MEDS ORDERED: LORAZEPAM 1MG TABLET PO ONE (18:30)
[2020-03-14] MEDS ORDERED: LORAZEPAM 2MG/ML CPJ IM ONE (19:30)
[2020-03-14] MEDS ORDERED: ACETAMINOPHEN 325MG TABLET PO ONE (20:00)
[2020-03-14 22:57] LABS: *AMPHETAMINES SCREEN URINE PRESUMTIVE POSITIVE (NEGATIVE); *BARBITURATES SCREEN URINE NEGATIVE (NEGATIVE)
[2020-03-14 22:58] LABS: *BENZODIAZEPINES SCREEN URINE NEGATIVE (NEGATIVE); *COCAINE SCREEN URINE NEGATIVE (NEGATIVE); CANNABINOID URINE SCREEN PRESUMTIVE POSITIVE (NEGATIVE); METHADONE URINE SCREEN NEGATIVE (NEGATIVE); OPIATES URINE SCREEN NEGATIVE (NEGATIVE); PHENCYCLIDINE URINE SCREEN NEGATIVE (NEGATIVE)
[2020-03-14] MEDS ORDERED: DIPHENHYDRAMINE 25MG CAPSULE PO ONE (23:15)
[2020-03-15 01:06] VITALS: BP 179/63
== END 2020-03-15 01:10 | disposition home or self-care (01) ==
LOC: ER 14:01
DX: R07.89 Other chest pain (principal); K08.89 Other specified disorders of teeth and supporting structures; F15.10 Other stimulant abuse, uncomplicated; F16.10 Hallucinogen abuse, uncomplicated; F12.10 Cannabis abuse, uncomplicated; R46.89 Other symptoms and signs involving appearance and behavior; I49.9 Cardiac arrhythmia, unspecified; E87.6 Hypokalemia; Z88.8 Allergy status to other drugs, medicaments and biological substances; Z86.59 Personal history of other mental and behavioral disorders
CPT/HCPCS: 36415; 71045; 80053; 80305; 84484; 85025; 93005; 96361; 96374; 99285; J1885; J7030; Q0163

== ENCOUNTER 2020-04-04 21:13 | Emergency (ER) | payer MEDICAID ==
[~2020-04-04] VITALS: Ht 172.7 cm; Wt 85.0 kg
[2020-04-04] MEDS ORDERED: SODIUM CHLORIDE 0.9% 1,000 ML IV ONE (21:45)
[2020-04-04 23:18] LABS: *AMPHETAMINES SCREEN URINE PRESUMTIVE POSITIVE (NEGATIVE); *BARBITURATES SCREEN URINE NEGATIVE (NEGATIVE)
[2020-04-04 23:19] LABS: *BENZODIAZEPINES SCREEN URINE NEGATIVE (NEGATIVE); *COCAINE SCREEN URINE NEGATIVE (NEGATIVE); CANNABINOID URINE SCREEN PRESUMTIVE POSITIVE (NEGATIVE); METHADONE URINE SCREEN NEGATIVE (NEGATIVE); OPIATES URINE SCREEN NEGATIVE (NEGATIVE); PHENCYCLIDINE URINE SCREEN NEGATIVE (NEGATIVE)
[2020-04-04 23:21] LABS: BASOPHILS % 0.5 % (0.0-2.0); HEMATOCRIT. 41.9 % (42.0-52.0); HEMOGLOBIN. 13.4 g/dL (14.0-18.0); LYMPHOCYTES % 15.5 % (20.0-50.0); MEAN CORPUSCULAR HEMOGLOBIN 26.6 pg (28.0-32.0); MEAN PLATELET VOLUME 7.9 fl (7.4-10.4); MONOCYTES % 10.5 % (2.0-8.0); NEUTROPHILS % 73.5 % (40.0-76.0); PLATELET 228 x1000/uL (130-400); RED BLOOD CELL COUNT 5.05 mill/uL (4.7-6.1); RED CELL DISTRIBUTION WIDTH 16.8 % (11.6-14.6)
[2020-04-04 23:22] LABS: CHLORIDE 107 mEq/L (98-107)
[2020-04-04 23:49] VITALS: BP 134/77
[2020-04-05] MEDS ORDERED: DIPHENHYDRAMINE 25MG CAPSULE PO ONE (01:15)
== END 2020-04-05 01:49 | disposition home or self-care (01) ==
LOC: ER 21:13
DX: T43.621A Poisoning by amphetamines, accidental (unintentional), initial encounter (principal); R07.89 Other chest pain; F15.188 Other stimulant abuse with other stimulant-induced disorder; Y92.89 Other specified places as the place of occurrence of the external cause; F20.9 Schizophrenia, unspecified; R03.0 Elevated blood-pressure reading, without diagnosis of hypertension
CPT/HCPCS: 36415; 71045; 80053; 80305; 84484; 85025; 93005; 96360; 96361; 99285; J7030

== ENCOUNTER 2020-05-09 13:11 | Emergency (ER) | payer MEDICAID ==
[~2020-05-09] VITALS: Ht 172.7 cm; Wt 78.0 kg
[2020-05-09] MEDS ORDERED: ACETAMINOPHEN 325MG TABLET PO ONE (13:45)
[2020-05-09] MEDS ORDERED: LIDOCAINE HCL 1% 20ML VIAL (Pyxis) INJ INFIL ONE (15:15)
[2020-05-09 16:00] VITALS: BP 122/65
[2020-05-09] MEDS ORDERED: AMOX-424 MT (16:10)
== END 2020-05-09 16:20 | disposition home or self-care (01) ==
LOC: ER 13:11
DX: K04.7 Periapical abscess without sinus (principal); F15.10 Other stimulant abuse, uncomplicated; F19.10 Other psychoactive substance abuse, uncomplicated; F20.9 Schizophrenia, unspecified; I49.9 Cardiac arrhythmia, unspecified; Z79.899 Other long term (current) drug therapy
CPT/HCPCS: 99283; J3490

== ENCOUNTER 2020-06-11 07:49 | Emergency (ER) | payer MEDICAID ==
[~2020-06-11] VITALS: Ht 167.6 cm; Wt 80.0 kg
[~2020-06-11 07:49] MED LIST changes: +AMOX-424 MT
[2020-06-11 09:18] LABS: BASOPHILS % 0.6 % (0.0-2.0); EOSINOPHILS % 0.1 % (0.0-5.0); HEMATOCRIT. 40.5 % (42.0-52.0); HEMOGLOBIN. 13.6 g/dL (14.0-18.0); LYMPHOCYTES % 23.3 % (20.0-50.0); MEAN CORPUSCULAR VOLUME 83.2 fL (80.0-94.0); MEAN PLATELET VOLUME 7.5 fl (7.4-10.4); MONOCYTES % 8.9 % (2.0-8.0); NEUTROPHILS % 67.1 % (40.0-76.0); PLATELET 227 x1000/uL (130-400); RED BLOOD CELL COUNT 4.87 mill/uL (4.7-6.1); RED CELL DISTRIBUTION WIDTH 16.5 % (11.6-14.6)
[2020-06-11 09:27] LABS: CHLORIDE 104 mEq/L (98-107)
[2020-06-11 11:00] VITALS: BP 131/91
== END 2020-06-11 11:43 | disposition home or self-care (01) ==
LOC: ER 07:49
DX: F41.9 Anxiety disorder, unspecified (principal); R00.0 Tachycardia, unspecified; R79.89 Other specified abnormal findings of blood chemistry; M79.605 Pain in left leg; M41.9 Scoliosis, unspecified; F15.10 Other stimulant abuse, uncomplicated
CPT/HCPCS: 36415; 71045; 80053; 83880; 84484; 85025; 93005; 99285

== ENCOUNTER 2020-06-11 11:43 | Emergency (ER) | payer MEDICAID ==
[~2020-06-11] VITALS: Ht 177.8 cm; Wt 81.6 kg
[2020-06-11] MEDS ORDERED: ACETAMINOPHEN 325MG TABLET PO STA (12:21)
[2020-06-11 12:33] VITALS: BP 129/78
[2020-06-11 13:22] LABS: BASOPHILS % 0.4 % (0.0-2.0); HEMATOCRIT. 41.2 % (42.0-52.0); HEMOGLOBIN. 13.8 g/dL (14.0-18.0); LYMPHOCYTES % 18.7 % (20.0-50.0); MEAN CORPUSCULAR HEMOGLOBIN 27.9 pg (28.0-32.0); MEAN CORPUSCULAR VOLUME 83.7 fL (80.0-94.0); MEAN PLATELET VOLUME 7.8 fl (7.4-10.4); MONOCYTES % 7.9 % (2.0-8.0); PLATELET 245 x1000/uL (130-400); RED BLOOD CELL COUNT 4.92 mill/uL (4.7-6.1); RED CELL DISTRIBUTION WIDTH 16.3 % (11.6-14.6)
[2020-06-11 13:27] LABS: CHLORIDE 102 mEq/L (98-107)
[2020-06-11 13:32] LABS: ETHANOL BLOOD < 10 mg/dL
== END 2020-06-11 16:32 | disposition home or self-care (01) ==
LOC: ER 12:28
DX: R07.89 Other chest pain (principal); R51.9 Headache, unspecified; R00.0 Tachycardia, unspecified; R03.0 Elevated blood-pressure reading, without diagnosis of hypertension; F15.10 Other stimulant abuse, uncomplicated; F20.9 Schizophrenia, unspecified
CPT/HCPCS: 36415; 80053; 80320; 84484; 85025; 99283; G0480

== ENCOUNTER 2020-06-17 12:55 | Emergency (ER) | payer MEDICAID ==
[~2020-06-17] VITALS: Ht 180.3 cm; Wt 81.0 kg
[2020-06-17] MEDS ORDERED: IBUPROFEN 600MG TABLET PO STA (14:09)
[2020-06-17 15:06] LABS: BASOPHILS % 0.7 % (0.0-2.0); EOSINOPHILS % 2.6 % (0.0-5.0); HEMATOCRIT. 36.4 % (42.0-52.0); LYMPHOCYTES % 46.4 % (20.0-50.0); MEAN CORPUSCULAR HEMOGLOBIN 27.8 pg (28.0-32.0); MEAN CORPUSCULAR VOLUME 84.2 fL (80.0-94.0); MEAN PLATELET VOLUME 7.4 fl (7.4-10.4); MONOCYTES % 10.1 % (2.0-8.0); NEUTROPHILS % 40.2 % (40.0-76.0); PLATELET 240 x1000/uL (130-400); RED BLOOD CELL COUNT 4.32 mill/uL (4.7-6.1); RED CELL DISTRIBUTION WIDTH 16.4 % (11.6-14.6)
[2020-06-17 15:09] LABS: CHLORIDE 109 mEq/L (98-107)
[2020-06-17] MEDS ORDERED: IBUP-2029 MT (15:35)
[2020-06-17 16:08] VITALS: BP 121/67
== END 2020-06-17 16:08 | disposition home or self-care (01) ==
LOC: ER 12:55
DX: R07.89 Other chest pain (principal); I10 Essential (primary) hypertension; F15.10 Other stimulant abuse, uncomplicated; Z98.890 Other specified postprocedural states; Z79.899 Other long term (current) drug therapy
CPT/HCPCS: 36415; 71045; 80053; 83880; 84484; 85025; 93005; 99285

== ENCOUNTER 2020-07-06 12:22 | Emergency (ER) | payer MEDICAID ==
[~2020-07-06] VITALS: Ht 177.8 cm; Wt 82.0 kg
[~2020-07-06 12:22] MED LIST changes: +IBUP-2029 MT
[2020-07-06] MEDS ORDERED: KETOROLAC 30MG/ML VIAL IV ONE (12:45)
[2020-07-06 13:42] LABS: BASOPHILS % 0.7 % (0.0-2.0); EOSINOPHILS % 0.6 % (0.0-5.0); HEMATOCRIT. 44.3 % (42.0-52.0); HEMOGLOBIN. 14.4 g/dL (14.0-18.0); LYMPHOCYTES % 36.6 % (20.0-50.0); MEAN CORPUSCULAR HEMOGLOBIN 27.3 pg (28.0-32.0); MEAN CORPUSCULAR VOLUME 83.9 fL (80.0-94.0); MEAN PLATELET VOLUME 7.6 fl (7.4-10.4); NEUTROPHILS % 52.1 % (40.0-76.0); PLATELET 255 x1000/uL (130-400); RED BLOOD CELL COUNT 5.29 mill/uL (4.7-6.1); RED CELL DISTRIBUTION WIDTH 16.2 % (11.6-14.6)
[2020-07-06 13:48] LABS: CHLORIDE 105 mEq/L (98-107)
[2020-07-06 13:52] LABS: ETHANOL BLOOD 97 mg/dL
[2020-07-06 13:59] VITALS: BP 165/90
[2020-07-06] MEDS ORDERED: POTASSIUM CHLORIDE 20MEQ TABLET SR PO ONE (14:45)
== END 2020-07-06 14:50 ==
LOC: ER 12:22
DX: R07.89 Other chest pain (principal); I10 Essential (primary) hypertension; F17.200 Nicotine dependence, unspecified, uncomplicated; Z88.8 Allergy status to other drugs, medicaments and biological substances; Z79.899 Other long term (current) drug therapy
CPT/HCPCS: 36415; 71045; 80053; 80320; 83690; 83880; 84484; 85025; 93005; 96374; 99285; J1885; G0480

== ENCOUNTER 2020-07-07 17:38 | Emergency (ER) | payer MEDICAID ==
[~2020-07-07] VITALS: Ht 167.6 cm; Wt 82.0 kg
[2020-07-07] MEDS ORDERED: DIPHENHYDRAMINE 50MG CAPSULE PO ONE (19:45)
[2020-07-07] MEDS ORDERED: LORAZEPAM 1MG TABLET PO ONE (19:45)
[2020-07-07 22:30] VITALS: BP 136/82
== END 2020-07-07 22:31 | disposition home or self-care (01) ==
LOC: ER 17:38
DX: F15.10 Other stimulant abuse, uncomplicated (principal); R07.89 Other chest pain; I10 Essential (primary) hypertension; Z79.899 Other long term (current) drug therapy; Z88.8 Allergy status to other drugs, medicaments and biological substances
CPT/HCPCS: 71045; 93005; 99283; Q0163

== ENCOUNTER 2020-07-08 00:09 | Emergency (ER) | payer MEDICAID ==
[~2020-07-08] VITALS: Ht 177.8 cm; Wt 82.0 kg
[2020-07-08 02:38] LABS: BASOPHILS % 0.3 % (0.0-2.0); EOSINOPHILS % 0.2 % (0.0-5.0); HEMATOCRIT. 40.8 % (42.0-52.0); HEMOGLOBIN. 13.5 g/dL (14.0-18.0); LYMPHOCYTES % 25.8 % (20.0-50.0); MEAN CORPUSCULAR HEMOGLOBIN 27.6 pg (28.0-32.0); MEAN CORPUSCULAR VOLUME 83.4 fL (80.0-94.0); MEAN PLATELET VOLUME 7.2 fl (7.4-10.4); MONOCYTES % 11.2 % (2.0-8.0); NEUTROPHILS % 62.5 % (40.0-76.0); PLATELET 241 x1000/uL (130-400); RED BLOOD CELL COUNT 4.89 mill/uL (4.7-6.1); RED CELL DISTRIBUTION WIDTH 16.2 % (11.6-14.6)
[2020-07-08 02:52] LABS: CHLORIDE 104 mEq/L (98-107)
[2020-07-08 02:57] LABS: ETHANOL BLOOD < 10 mg/dL
[2020-07-08] MEDS ORDERED: DIPHENHYDRAMINE 25MG CAPSULE PO ONE (10:45)
[2020-07-08 10:58] VITALS: BP 126/76
== END 2020-07-08 11:15 | disposition home or self-care (01) ==
LOC: ER 00:09
DX: R45.850 Homicidal ideations (principal); F15.10 Other stimulant abuse, uncomplicated; Z79.899 Other long term (current) drug therapy
CPT/HCPCS: 36415; 80053; 80320; 85025; 99285; Q0163; Z7610; G0480

== ENCOUNTER 2020-10-14 16:22 | Emergency (ER) | payer MEDICAID ==
[~2020-10-14] VITALS: Ht 172.7 cm; Wt 90.0 kg
[2020-10-14 18:47] LABS: BASOPHILS % 0.6 % (0.0-2.0); HEMOGLOBIN. 13.7 g/dL (14.0-18.0); LYMPHOCYTES % 16.6 % (20.0-50.0); MEAN CORPUSCULAR VOLUME 81.9 fL (80.0-94.0); MEAN PLATELET VOLUME 7.4 fl (7.4-10.4); MONOCYTES % 7.6 % (2.0-8.0); NEUTROPHILS % 75.2 % (40.0-76.0); PLATELET 282 x1000/uL (130-400); RED BLOOD CELL COUNT 4.89 mill/uL (4.7-6.1); RED CELL DISTRIBUTION WIDTH 16.3 % (11.6-14.6)
[2020-10-14 18:51] LABS: CHLORIDE 103 mEq/L (98-107)
[2020-10-14 20:51] LABS: CLARITY URINE CLEAR (CLEAR); COLOR URINE YELLOW (YELLOW); KETONES URINE NEGATIVE (NEGATIVE); LEUKOCYTE ESTERASE URINE NEGATIVE (NEGATIVE); NITRITE URINE NEGATIVE (NEGATIVE); OCCULT BLOOD URINE NEGATIVE (NEGATIVE); PH URINE 8.5 (4.5-8.0); PROTEIN URINE NEGATIVE (NEGATIVE); SPECIFIC GRAVITY URINE 1.014 (1.005-1.030); UROBILINOGEN URINE 0.2 E.U./dL (0.2-1.0)
[2020-10-14 21:00] VITALS: BP 128/89
[2020-10-14 21:00] LABS: *COCAINE SCREEN URINE NEGATIVE (NEGATIVE); METHADONE URINE SCREEN NEGATIVE (NEGATIVE)
[2020-10-14 21:01] LABS: *AMPHETAMINES SCREEN URINE NEGATIVE (NEGATIVE); *BARBITURATES SCREEN URINE NEGATIVE (NEGATIVE); *BENZODIAZEPINES SCREEN URINE NEGATIVE (NEGATIVE); CANNABINOID URINE SCREEN PRESUMTIVE POSITIVE (NEGATIVE); OPIATES URINE SCREEN NEGATIVE (NEGATIVE); PHENCYCLIDINE URINE SCREEN NEGATIVE (NEGATIVE)
== END 2020-10-14 21:07 | disposition home or self-care (01) ==
LOC: ER 16:22
DX: R07.89 Other chest pain (principal); F15.10 Other stimulant abuse, uncomplicated; F10.229 Alcohol dependence with intoxication, unspecified; I10 Essential (primary) hypertension; Z79.899 Other long term (current) drug therapy; Y90.0 Blood alcohol level of less than 20 mg/100 ml
CPT/HCPCS: 36415; 71045; 80053; 80305; 81003; 84484; 85025; 93005; 99285

== ENCOUNTER 2020-11-13 11:12 | Emergency (ER) | payer MEDICAID ==
[~2020-11-13] VITALS: Ht 177.8 cm; Wt 82.0 kg
[~2020-11-13 11:12] MED LIST changes: -OLAN10TA19 MT; +OLAN10TA72 MT
[2020-11-13] MEDS ORDERED: IBUP-2029 MT (12:53)
[2020-11-13] MEDS ORDERED: DIPH25TA62 MT (12:53)
[2020-11-13 13:06] VITALS: BP 128/74
== END 2020-11-13 13:06 | disposition home or self-care (01) ==
LOC: ER 11:12
DX: J30.2 Other seasonal allergic rhinitis (principal); F15.10 Other stimulant abuse, uncomplicated; I49.9 Cardiac arrhythmia, unspecified; I10 Essential (primary) hypertension; Z76.0 Encounter for issue of repeat prescription; Z88.8 Allergy status to other drugs, medicaments and biological substances; Z79.899 Other long term (current) drug therapy; Z98.890 Other specified postprocedural states
CPT/HCPCS: 93005; 99283

== ENCOUNTER 2020-11-19 10:56 | Emergency (ER) | payer MEDICAID ==
[~2020-11-19] VITALS: Ht 177.8 cm; Wt 82.0 kg
[~2020-11-19 10:56] MED LIST changes: +DIPH25TA62 MT
[2020-11-19] MEDS ORDERED: KETOROLAC 30MG/ML VIAL IV ONE (12:00)
[2020-11-19 12:05] LABS: BASOPHILS % 0.6 % (0.0-2.0); EOSINOPHILS % 0.3 % (0.0-5.0); HEMATOCRIT. 38.7 % (42.0-52.0); LYMPHOCYTES % 30.1 % (20.0-50.0); MEAN CORPUSCULAR HEMOGLOBIN 27.9 pg (28.0-32.0); MEAN CORPUSCULAR VOLUME 83.2 fL (80.0-94.0); MEAN PLATELET VOLUME 7.7 fl (7.4-10.4); MONOCYTES % 7.4 % (2.0-8.0); NEUTROPHILS % 61.6 % (40.0-76.0); PLATELET 309 x1000/uL (130-400); RED BLOOD CELL COUNT 4.65 mill/uL (4.7-6.1); RED CELL DISTRIBUTION WIDTH 15.8 % (11.6-14.6)
[2020-11-19 13:07] LABS: CHLORIDE 102 mEq/L (98-107)
[2020-11-19] MEDS ORDERED: IBUP-2028 MT (13:25)
[2020-11-19 13:46] VITALS: BP 130/84
== END 2020-11-19 14:03 | disposition home or self-care (01) ==
LOC: ER 10:56
DX: R07.89 Other chest pain (principal); I10 Essential (primary) hypertension; F10.20 Alcohol dependence, uncomplicated; Y90.9 Presence of alcohol in blood, level not specified; Z88.8 Allergy status to other drugs, medicaments and biological substances; Z79.899 Other long term (current) drug therapy
CPT/HCPCS: 36415; 71045; 80053; 84484; 85025; 93005; 96374; 99285; J1885